=== PATIENT | female | born 1945 | race Caucasian/White ===

== ENCOUNTER → 2016-07-08 | Outpatient (CLI) | payer OTHER ==
[2016-07-08 13:28] LABS: BASO % 0.3 %; BASO ABS # 0.02 K/uL (0-0.2); COMPLETE YES; EOS % 1.8 %; HEMATOCRIT 36.9 % (37-47); IG% 0.3 %; LYMPH ABS # 1.86 K/uL (1.2-3.4); MEAN CELL VOLUME 93.9 fL (80-100); MEAN CORPUSCULAR HEMOGLOBIN 31.3 pg (25-34); MEAN CORPUSCULAR HGB CONC 33.3 g/dl (32-36); MEAN PLATELET VOLUME 10.2 fL (7.4-10.4); MONO % 9.5 %; NEUT % 57.1 %; PLATELET COUNT 175 K/uL (130-400); RED BLOOD COUNT 3.93 M/uL (4.2-5.4)
[2016-07-08 14:08] LABS: BLOOD UREA NITROGEN 24 mg/dl (7-18); BUN/CREATININE RATIO 24.9 (10-20); CALCIUM 9.6 mg/dl (8.5-10.1); CARBON DIOXIDE 26 mmol/L (21-32); CHLORIDE 106 mmol/L (98-107); CREATININE 0.96 mg/dl (0.60-1.20); GLUCOSE 93 mg/dl (70-99); MAGNESIUM 1.9 mg/dl (1.8-2.4); SODIUM 140 mmol/L (136-145)
== END | disposition home or self-care (01) ==
LOC: C.LABMFLN 08:57
PROVIDERS: ATTEND Internal Medicine Gastroenterology
DX: R13.10 Dysphagia, unspecified (principal); R11.2 Nausea with vomiting, unspecified; Z51.81 Encounter for therapeutic drug level monitoring; Z79.899 Other long term (current) drug therapy

== ENCOUNTER → 2016-08-08 | Outpatient (CLI) | payer OTHER ==
[2016-08-08 18:04] LABS: BASO % 0.5 %; BASO ABS # 0.03 K/uL (0-0.2); COMPLETE YES; EOS % 2.9 %; HEMATOCRIT 38.8 % (37-47); IG% 0.2 %; LYMPH % 33.9 %; LYMPH ABS # 2.22 K/uL (1.2-3.4); MEAN CELL VOLUME 96.3 fL (80-100); MEAN CORPUSCULAR HEMOGLOBIN 30.8 pg (25-34); MEAN PLATELET VOLUME 9.9 fL (7.4-10.4); MONO % 9.6 %; NEUT % 52.9 %; PLATELET COUNT 197 K/uL (130-400); RED BLOOD COUNT 4.03 M/uL (4.2-5.4); WHITE BLOOD COUNT 6.54 K/uL (4.8-10.8)
[2016-08-08 18:17] LABS: ALT/SGPT 43 U/L (12-78); AST/SGOT 16 U/L (15-37); BLOOD UREA NITROGEN 21 mg/dl (7-18); BUN/CREATININE RATIO 22.2 (10-20); CALCIUM 9.8 mg/dl (8.5-10.1); CARBON DIOXIDE 35 mmol/L (21-32); CHLORIDE 104 mmol/L (98-107); CREATININE 0.95 mg/dl (0.60-1.20); GLUCOSE 97 mg/dl (70-99); POTASSIUM 3.6 mmol/L (3.5-5.1); SODIUM 142 mmol/L (136-145)
[2016-08-08 18:26] LABS: ALB/GLOB RATIO 1.2 (0.9-2); ALKALINE PHOSPHATASE 74 U/L (45-117); CHOLESTEROL 188 mg/dl (0-200); CHOLESTEROL/HDL RATIO 3.8; HDL CHOLESTEROL 49 mg/dl; LDL CHOLESTEROL CALCULATED 112 mg/dl; TRIGLYCERIDES 136 mg/dl (0-150); VERY LOW DENSITY LIPOPROT CALC 27 mg/dl
--- NOTE | 2016-08-16 09:54 | CODING QUERY MEDICAL NECESSITY ---
CQSUPPORTING DIAGNOSIS NEEDED A supporting diagnosis is required for the test/procedure performed on this patient in order for us to be reimbursed by the patient's insurance. Please provide a supporting diagnosis for the following test/procedure listed below next to the test name along with your signature. *If there is no additional diagnosis for this patient that would support the following test/procedure please document that below next to the test/procedure. Test(s)/Procedure(s) that require a supporting diagnosis: DOS 08/08/16 VITAMIN B12 Provider Signature: Date: Thank you Erica Neely [employer] Once completed, please kindly fax back to [phone] For questions please call [phone]
== END | disposition home or self-care (01) ==
LOC: C.LABMFLN 13:53
PROVIDERS: ATTEND Family Medicine
DX: I10 Essential (primary) hypertension (principal); F32.9 Major depressive disorder, single episode, unspecified

== ENCOUNTER → 2016-10-30 | Outpatient (CLI) | payer OTHER | END | disposition home or self-care (01) | LOC: C.PAPS 09:38 | PROVIDERS: ATTEND Obstetrics & Gynecology | DX: Z91.89 Other specified personal risk factors, not elsewhere classified (principal); R87.612 Low grade squamous intraepithelial lesion on cytologic smear of cervix (LGSIL) ==

== ENCOUNTER → 2017-01-03 | Outpatient (CLI) | payer OTHER | END | disposition home or self-care (01) | LOC: C.PATHSPEC 14:03 | PROVIDERS: ATTEND Obstetrics & Gynecology | DX: R87.612 Low grade squamous intraepithelial lesion on cytologic smear of cervix (LGSIL) (principal); N72 Inflammatory disease of cervix uteri ==

== ENCOUNTER → 2017-01-14 | Outpatient (CLI) | payer OTHER | END | disposition home or self-care (01) | LOC: C.LABMFLN 15:01 | PROVIDERS: ATTEND Family Medicine | DX: Z11.59 Encounter for screening for other viral diseases (principal) ==

== ENCOUNTER → 2017-05-05 | Outpatient (CLI) | payer OTHER ==
--- NOTE | 2017-05-05 16:00 | DIAGNOSTIC IMAGING REPORT ---
CAROTID DOPPLER NECK ART CLINICAL HISTORY: 71 years-old Female with patient presents with carotid bruit. COMPARISON: None available TECHNIQUE: Multiple real time sonographic images of the carotid bifurcations were obtained assessing mcmullen scale, color Doppler and spectral wave form appearance FINDINGS: RIGHT INTERNAL CAROTID: The peak systolic velocity measured 80 cm/sec. The end diastolic velocity measured 31 cm/sec. The ICA to CCA ratio measured 1.3 which correlates with a stenosis of 0-50%. LEFT INTERNAL CAROTID: The peak systolic velocity measured 123 cm/sec. The end diastolic velocity measured 33 cm/sec. The ICA to CCA ratio measured 1.3 which correlates with a stenosis of 0-50%. Mild degree of mixed plaquing is seen within the proximal portion of the left internal carotid artery. There is normal antegrade vertebral flow bilaterally. IMPRESSION: 1. Mild mixed plaquing involves the proximal portion of the left internal carotid artery without hemodynamically significant stenosis. 2. Normal antegrade vertebral flow bilaterally. The above report was generated using voice recognition software. It may contain grammatical, syntax or spelling errors. Electronically signed by: Kendall Watkins M.D. 05/05/2017 3:59 PM Dictated Date/Time: 05/05/2017 3:55 PM
== END | disposition home or self-care (01) ==
LOC: C.ULTR 11:29
PROVIDERS: ATTEND Family Medicine
DX: R09.89 Other specified symptoms and signs involving the circulatory and respiratory systems (principal)

== ENCOUNTER 2018-05-04 05:26 | Observation (INO) ==
--- NOTE | 2018-04-13 14:06 | PAT Medication Instructions ---
Medication Instructions Date of Service April 13, 2018 Home Medications Calcium 1 dose PO QAM Folic Acid 1 dose PO QAM Lisinopril 1 dose PO QAM Vitamin B Complex 1 dose PO QAM Vitamin C 1 dose PO QAM Wellbutrin 300 mg PO QAM aspirin [Aspir-81] 81 mg PO DAILY escitalopram oxalate 10 mg PO QAM multivitamin [Multiple Vitamins] 1 tab PO DAILY ASK your surgeon for instructions aspirin [Aspir-81] 81 mg PO DAILY DO NOT take the morning of surgery Calcium 1 dose PO QAM Folic Acid 1 dose PO QAM Lisinopril 1 dose PO QAM Vitamin B Complex 1 dose PO QAM Vitamin C 1 dose PO QAM multivitamin [Multiple Vitamins] 1 tab PO DAILY Take morning of surgery With a small sip of water, OTHERWISE NOTHING TO EAT OR DRINK AFTER MIDNIGHT: Wellbutrin 300 mg PO QAM escitalopram oxalate 10 mg PO QAM Other Notes If you have any questions please call us at [phone] or [phone] or [phone] or [phone]
--- NOTE | 2018-04-13 16:06 | Anesthesiology Consultation ---
Date of Service April 13, 2018 Assessment & Plan (1) Encounter for pre-operative examination: Chart Review Chart Review: Acceptable Risk for Surgery and Patient seen in Pre Admission Testing Teaching & Discussion Instructed NPO after midnight before surgery, except medications with 15 cc of water. Medication instructions provided according to the PAT guidelines. History Surgery Operation Date: 05/04/18 09:20 Proposed Procedures p Robotic Total Laparoscopy Hysterectomy - Flory Jeffries MD, FACOG Height/Weight Height: 5 ft 2.5 in Weight: 66.2 kg Allergies Allergy/AdvReac Type Severity Reaction Status Date / Time morphine Allergy Unknown Hallucinati Verified 04/08/18 14:13 ng BANDAIDS Allergy Unknown BUMPS/BLISTERS Uncoded 04/08/18 14:34 ON SKIN Medications Home Medications Medication Instructions Recorded Confirmed Last Taken Calcium 1 dose PO QAM 04/08/18 04/08/18 Unknown Folic Acid 1 dose PO QAM 04/08/18 04/08/18 Unknown Lisinopril 1 dose PO QAM 04/08/18 04/08/18 Unknown Vitamin B Complex 1 dose PO QAM 04/08/18 04/08/18 Unknown Vitamin C 1 dose PO QAM 04/08/18 04/08/18 Unknown Wellbutrin 300 mg PO QAM 04/08/18 04/08/18 Unknown aspirin [Aspir-81] 81 mg PO DAILY 04/08/18 04/08/18 Unknown escitalopram oxalate 10 mg PO QAM 04/08/18 04/08/18 Unknown multivitamin [Multiple Vitamins] 1 tab PO DAILY 04/08/18 04/08/18 Unknown Past Medical History Medical History Anxiety and depression Family history of reaction to anesthesia SISTER GETS SEVERE N/V History of breast cancer 2002 Hypertension Nausea and vomiting after administration of anesthetic agent Past Family History Family History Other Family history of cancer in mother Past Surgical History Surgical History H/O breast reconstruction History of appendectomy History of bilateral mastectomy History of colonoscopy History of laparoscopic cholecystectomy History of vascular access device A port for breast cancer, still in place Past Anesthesia History MULTIPLE OCCASIONS OF PONV. SISTER WITH SEVERE PONV. NO OTHER PERSONAL OR FHX OF COMPLICATIONS. History of PONV Yes Motion Sickness Screening History of Motion Sickness: No Social History Smoking Status: Former smoker tobacco type: cigarettes Smoking cigarettes per day: QUIT 35 YRS AGO Do You Dip or Chew Tobacco: No Hx Alcohol Use: Yes Alcohol type: beer and wine alcohol intake frequency: a few times a month Hx Substance Use: No substance use type: does not use Exercise / Class Metabolic Activity II 4-5 Yardwork/Stairs/Walk up hill (no CP or SOB with stairs) Review of Systems Pt denies any recent chest pain, shortness of breath, palpitations, cough, fever or URI. Physical Exam Vital Signs BP: 164/78 (pt states was 120's at surgeon's office; she is anxious) P: 72 SPO2: 98% RA T: 98.2 R: 16 ENMT Mouth: no dental restorations, no chipped teeth and no loose teeth Thyromental Distance: < 3.5 Finger Breadths (3) Mallampati Class: III Neck normal visual inspection and + limited neck extension (mildly limited extension) Respiratory normal respiratory effort Auscultation: lungs clear to auscultation bilaterally Cardiovascular Rate/Rhythm: regular rate and regular rhythm Heart Sounds: no murmur Vessels: no carotid bruit Extremities: no edema Testing Electrocardiogram Date: 04/13/18 Findings: + NSR @ (70) Chest X-Ray Date: 04/13/18 Findings: + NAD Laboratory Results 04/13/18 16:15 04/13/18 16:15 Blood Type B Negative 04/13/18 16:15 Antibody Screen NEGATIVE 04/13/18 16:15
[2018-04-13 16:42] LABS: Basophils # (auto) 0.05 K/uL (0-0.2); Basophils % (auto) 0.8 %; Eosinophils # (auto) 0.14 K/uL (0-0.5); Eosinophils % (auto) 2.2 %; Hematocrit (blood only) 38.3 % (37-47); Hemoglobin 12.4 g/dL (12.0-16.0); Immature Granulocytes # (auto) 0.01 K/uL (0.00-0.02); Immature Granulocytes % (auto) 0.2 %; Lymphocytes # (auto) 2.21 K/uL (1.2-3.4); Lymphocytes % (auto) 34.2 %; Mean Corpuscular Hgb Conc 32.4 g/dL (32-36); Mean Corpuscular Volume 93.9 fL (80-100); Monocytes # (auto) 0.68 K/uL (0.11-0.59); Monocytes % (auto) 10.5 %; Neutrophils # (auto) 3.37 K/uL (1.4-6.5); Neutrophils % (auto) 52.1 %; Platelet Count 205 K/uL (130-400); RDW Coefficient of Variation 12.7 % (11.5-14.5); RDW Standard Deviation 43.3 fL (36.4-46.3); Red Blood Count 4.08 M/uL (4.2-5.4); White Blood Count 6.46 K/uL (4.8-10.8)
--- NOTE | 2018-04-13 16:45 | XRay Report ---
XR chest Pre-admission PA/Lat CLINICAL HISTORY: pat preoperative COMPARISON STUDY: No previous studies for comparison. FINDINGS: Postoperative changes right axilla area Central catheters. Vena cava. Lungs are considered clear. IMPRESSION: Postoperative changes as noted. No acute process. The above report was generated using voice recognition software. It may contain grammatical, syntax or spelling errors. Electronically signed by: Moise Gibson M.D. 04/13/2018 4:44 PM
[2018-04-13 16:51] LABS: BUN Creatinine Ratio 18.6 (10-20); Calcium 10.4 mg/dl (8.5-10.1); Creatinine Clr Calc Pharmacy 48.6 ml/min; Est GFR (Non-African American) 59.5
[2018-05-04] MEDS ORDERED: LR 15ML/HR IV SCH (06:00)
[2018-05-04] MEDS ORDERED: CEFAZOLIN 2000MG 2,000 MG/15 ML SYR IV SCH (06:00)
[2018-05-04] MEDS ORDERED: [UNRECOGNIZED DRUG - OTHER] IV SCH (06:00)
--- NOTE | 2018-05-04 07:05 | History & Physical Bridge Note ---
Date of Service May 04, 2018 History & Physical Bridge Note I have examined the patient, reviewed the History & Physical and in the interval since the performance of the History & Physical I have noted the following changes of clinical significance: no changes noted
[2018-05-04] MEDS ORDERED: fentaNYL citrate 100 MCG/2 ML VIAL ONE (07:07)
[2018-05-04] MEDS ORDERED: MIDAZOLAM HCL 1 MG/ML 2ML VIAL ONE (07:07)
[2018-05-04] MEDS ORDERED: LABETALOL HCL IV 5 MG/ML 20ML IV PRN (07:14)
[2018-05-04] MEDS ORDERED: KETOROLAC TROMETHAMINE 15 MG/ML VIAL IV PRN ×2 (07:14→09:53)
[2018-05-04] MEDS ORDERED: SCOPOLAMINE 1.5 MG TDSY ONE (07:14)
[2018-05-04] MEDS ORDERED: HYDROmorphone INJ 1 MG/ML SYRINGE IV PRN (07:14)
[2018-05-04] MEDS ORDERED: ATROPINE SULFATE 0.1 MG/ML 10ML SYR IV PRN (07:14)
[2018-05-04] MEDS ORDERED: ONDANSETRON INJ 2 MG/ML 2 ML VIAL IV PRN ×2 (07:14→09:53)
[2018-05-04] MEDS ORDERED: SCOPOLAMINE 1.5 MG TDSY TD ONE (07:15)
[2018-05-04] MEDS ORDERED: METHYLENE BLUE 0.5% 10 ML VIAL ONE (07:20)
[2018-05-04] MEDS ORDERED: BUPIVACAINE 0.5 % 5 MG/1 ML MPF 30ML VIAL ONE (07:20)
[2018-05-04] MEDS ORDERED: GLYCOPYRROLATE 0.2 MG/ML VIAL ONE (08:22)
[2018-05-04] MEDS ORDERED: ROCURONIUM BROMIDE 10 MG/ML 5 ML VIAL ONE (08:22)
[2018-05-04] MEDS ORDERED: PROPOFOL IV EMULSION 10 MG/ML 20 ML VIAL IV ONE (08:22)
[2018-05-04] MEDS ORDERED: LARYING-O-JET KIT (LTA) ONE (08:22)
[2018-05-04] MEDS ORDERED: ePHEDrine sulfate 50 MG/ML SYR ONE (08:22)
[2018-05-04] MEDS ORDERED: LIDOCAINE HCL 2% 2 ML VIAL/AMP(20MG/ML) INFIL ONE (08:22)
[2018-05-04] MEDS ORDERED: PHENYLEPHRINE 100MCG/ML 5ML SYR ONE (08:22)
[2018-05-04] MEDS ORDERED: NEOSTIGMINE METHYLSULFATE 5 MG/5 ML SYR ONE (08:22)
[2018-05-04] MEDS ORDERED: ONDANSETRON INJ 2 MG/ML 2 ML VIAL ONE (08:22)
[2018-05-04] MEDS ORDERED: DEXAMETHASONE SOD INJ 4 MG/ML VIAL ONE (08:22)
[2018-05-04] MEDS ORDERED: KETOROLAC 30 MG/ML VIAL ONE (08:23)
[2018-05-04] MEDS ORDERED: TISSEEL FIBRIN SEALANT 4ML TOP ONE (09:20)
[2018-05-04] MEDS ORDERED: MAGNESIUM HYDROXIDE SUSP 30 ML UDC PO PRN (09:53)
[2018-05-04] MEDS ORDERED: MEPERIDINE HCL 50 MG/ML CARP IV PRN (09:53)
[2018-05-04] MEDS ORDERED: BISACODYL 10 MG SUPP PR PRN (09:53)
[2018-05-04] MEDS ORDERED: ZOLPIDEM TARTRATE 5 MG TAB PO PRN (09:53)
[2018-05-04] MEDS ORDERED: IBUPROFEN 600 MG TAB PO PRN (09:53)
[2018-05-04] MEDS ORDERED: SIMETHICONE 80 MG CHEW PO PRN (09:53)
[2018-05-04] MEDS ORDERED: PROMETHAZINE HCL 12.5 MG in SODIUM CHLORIDE 0.9% 50 ML IV PRN (09:53)
[2018-05-04] MEDS ORDERED: ACETAMINOPHEN 325 MG TAB PO PRN (09:53)
--- NOTE | 2018-05-04 09:53 | Post Operative Brief Note ---
Immediate Post Op Note v1 Date of Surgery May 04, 2018 Pre & Post Diagnosis Operation Date: 05/04/18 07:30 Pre-Op Diagnosis: Pap Smear of Cervix with High Grade Squamous Post-Op Diagnosis: Pap Smear of Cervix with High Grade Squamous Procedure Operation Date: 05/04/18 07:30 Actual Procedures p Robotic Total Laparoscopy Hysterectomy, Bilateral Salpingooopherectomy, Cystoscopy(Bilateral) - Flory Jeffries MD, FACOG Surgeon Flory Jeffries MD, FACOG Computer Field Technician none Estimated Blood Loss 10 Findings Consistent with Post-Op Diagnosis Drains Covarrubias Catheter
--- NOTE | 2018-05-04 10:33 | Anesthesiology Progress Note ---
Date of Service May 04, 2018 Anesthesia Post Procedure Vital Signs Vital Signs: Temp Pulse Pulse Resp BP Pulse Ox 05/04/18 10:25 69 19 135/55 L 94 05/04/18 10:15 65 26 H 130/51 L 99 05/04/18 10:05 65 12 130/58 L 99 05/04/18 09:57 36.9 C 68 13 170/78 H 99 05/04/18 05:52 36.8 C 87 20 171/83 H 98 Pain Intensity Abdomen: Pain Intensity: 5 Notes Mental Status: alert / awake / arousable Patient Amnestic to Procedure: Yes Nausea / Vomiting: adequately controlled Pain: adequately controlled Airway Patency, RR, SpO2: stable & adequate BP & HR: stable & adequate Hydration State: stable & adequate Anesthetic Complications: no major complications apparent
[2018-05-04] MEDS: CHECK SCOPOLAMINE PATCH PLACEMENT SCH (17:48)
--- NOTE | 2018-05-04 18:03 | Operative Report ---
Post Operative Report Pre & Post Diagnosis Operation Date: 05/04/18 07:30 Pre-Op Diagnosis: Pap Smear of Cervix with High Grade Squamous Post-Op Diagnosis: Pap Smear of Cervix with High Grade Squamous Procedure Operation Date: 05/04/18 07:30 Actual Procedures p Robotic Total Laparoscopy Hysterectomy, Bilateral Salpingooopherectomy( Bilateral) - Flory Jeffries MD, FACOG s Cystoscopy - Flory Jeffries MD, FACOG Surgeon Flory Jeffries MD, FACOG Hand Fretted Instrument Maker none Estimated Blood Loss 10 Findings Consistent with Post-Op Diagnosis Specimens Uterus, tubes, ovaries, cervix Description of Procedure Patient given a general anesthetic prepped and draped in dorsal lithotomy position. IV antibiotics given her cervix was severely distorted due to prior conization and LEEP procedures. We did attempt multiple times to place AV care but we could not place this successfully due to cervical anatomy being abnormal we used a sponge stick and a sponge to manipulate. Covarrubias catheter placed in her bladder. Subumbilical incision made with scalpel using open Webster technique we did a cutdown into the peritoneal cavity blunt-tipped Webster trocar placed balloon inflated to stabilize the port CO2 gas insufflated the peritoneal cavity and para findings upper abdomen normal no sign of visceral organ injury. Deep Trendelenburg position then obtained to visualize the pelvis this appeared normal as the uterus and adnexa all appeared normal. 2 robotic ports one in the left one on the right placed in a left upper quadrant 11 mm bladeless port placed. Robot docked and arm #1 was monopolar leena arm #2 was bipolar [place] procedure was begun by using through the accessory port a tenaculum to manipulate the uterus identified the ureter on both the left and right sides and then we coagulated the blood supply to the left ovary proximal to the ovary staying well away from the left ureter. This these vessels were then transected ovary was released from its lateral attachments to the sidewall round ligament was coagulated and cut bladder flap was developed sharply uterine vessels were skeletonized and then coagulated with the bipolar Maryland and cut with monopolar leena Same process was repeated on the right Once at the bladder flap we used the sponge on a stick with pressure to identify the bladder flap the vaginal junction and the cervix monopolar leena were used to make the anterior colpotomy and then continue it to remove the entire cervix. Uterus was then pulled into the vagina and removed along with adnexa. Sponge and a glove was placed in the vagina for pneumoperitoneum We then perform instrument exchanges are #1 became the [employer] needle dedicated intermodal truck driver arm #2 became the [employer] grasper 12 inch 2 oh 90-day V lock suture then passed cuff was then closed from left to right back right to left suture was cut so there is no tail needle removed the excess report after generous irrigation and suction reapplied 4 mL of Tisseel to the vascular beds Cystoscopy was performed revealing good strong jets of urine from the ureter openings and no damage to the bladder no sutures seen in the bladder a new Covarrubias catheter was placed It should be noted I did a second area of reinforcement of the vaginal cuff vaginally with an 0 Vicryl this was 2 [id number] sutures to ensure full closure as patient's tissues were somewhat weak. Instruments removed from the abdomen robot undocked ports removed and gas allowed to escape and incisions injected with 0.5% Marcaine fascia closed with 0 Vicryl simultaneous fat irrigated and closed with 0 Vicryl and skin closed with 4-0 subcuticular Monocryl sponge and inspect counts correct I attest to the content of the Intraoperative Record and any orders documented therein. Any exceptions are noted below.
[2018-05-04] MEDS: LACTATED RINGER'S 1,000 ML IV SCH (18:55)
[2018-05-04] MEDS: DOCUSATE SODIUM 100 MG CAP PO SCH (21:13)
[2018-05-04] MEDS: OXYCODONE/ACETAMINOPHEN 5mg/325mg TAB PO PRN (22:12)
[2018-05-05] MEDS: CHECK SCOPOLAMINE PATCH PLACEMENT SCH (00:06)
[2018-05-05] MEDS: LACTATED RINGER'S 1,000 ML IV SCH (03:12)
[2018-05-05] MEDS: OXYCODONE/ACETAMINOPHEN 5mg/325mg TAB PO PRN ×2 (03:26→08:20)
[2018-05-05 06:42] LABS: Basophils # (auto) 0.01 K/uL (0-0.2); Basophils % (auto) 0.1 %; Eosinophils # (auto) 0.02 K/uL (0-0.5); Eosinophils % (auto) 0.2 %; Hematocrit (blood only) 33.9 % (37-47); Hemoglobin 11.1 g/dL (12.0-16.0); Immature Granulocytes # (auto) 0.03 K/uL (0.00-0.02); Immature Granulocytes % (auto) 0.3 %; Lymphocytes # (auto) 2.04 K/uL (1.2-3.4); Lymphocytes % (auto) 19.8 %; Mean Corpuscular Hgb Conc 32.7 g/dL (32-36); Mean Corpuscular Volume 93.6 fL (80-100); Mean Platelet Volume 10.1 fL (7.4-10.4); Monocytes # (auto) 1.16 K/uL (0.11-0.59); Monocytes % (auto) 11.3 %; Neutrophils # (auto) 7.02 K/uL (1.4-6.5); Neutrophils % (auto) 68.3 %; Platelet Count 142 K/uL (130-400); RDW Coefficient of Variation 12.7 % (11.5-14.5); RDW Standard Deviation 43.6 fL (36.4-46.3); Red Blood Count 3.62 M/uL (4.2-5.4); White Blood Count 10.28 K/uL (4.8-10.8)
--- NOTE | 2018-05-05 07:56 | Progress Note ---
Date of Service May 05, 2018 POD#1 Ambulating well. Tolerating ZACH pain well controlled. No ext pain Assessment & Plan (1) Dysplasia of cervix: home Physical Exam 2 Vital Signs (Past 24 Hours): Last Vital Signs Temp 36.7 C 05/05/18 03:15 Pulse 70 05/05/18 03:15 Resp 20 05/05/18 03:15 BP 145/63 H 05/05/18 03:15 Pulse Ox 97 05/05/18 03:15 Constitutional: WD/WN, vitals as above Respiratory: normal respiratory effort, lungs clear to auscultation Gastrointestinal (Abdomen): normal bowel sounds, soft, nontender, no hepatosplenomegaly
[2018-05-05] MEDS: DOCUSATE SODIUM 100 MG CAP PO SCH (08:20)
--- NOTE | 2018-05-09 01:16 | Discharge Summary ---
HISTORY OF PRESENT ILLNESS: Barry had a total laparoscopic hysterectomy on 05/04/2018. Operative note dictated. The procedure was uncomplicated. By 05/05/2018, she met discharge criteria. At that time she was ambulating, tolerating an oral diet, voiding well, had minimal bleeding, no extremity pain. PHYSICAL EXAMINATION: VITAL SIGNS: Stable. She was afebrile. ABDOMEN: Soft, nontender. Incision was clean, dry, and intact. EXTREMITIES: Negative. IMPRESSION AND PLAN: Postop day #1 from total laparoscopic hysterectomy, bilateral salpingo-oophorectomy. Meets criteria. Given discharge instructions and reviewed. Pain medication given and told to follow up in the office.
== END 2018-05-05 10:30 | disposition home or self-care (01) ==
LOC: ASU 05:26 → 4S2 05:26

== ENCOUNTER 2024-10-18 05:15 | Inpatient (IN) ==
--- NOTE | 2024-10-18 09:08 | Critical Care Consultation ---
Date of Consultation October 18, 2024 Assessment & Plan (1) Hypertensive emergency: (2) NSTEMI (non-ST elevated myocardial infarction): (3) Adult ADHD: (4) Nonischemic cardiomyopathy: (5) Depression: (6) History of breast cancer: (7) Hypertension: (8) Shortness of breath: (9) Acute respiratory failure with hypoxia: Plan Reason Critically Ill: 79-year-old female admitted to the hospital/ICU for NSTEMI and hypertensive emergency She is being transferred from [facility] Past medical history: Hypertension, systolic CHF, anxiety/depression, dyslipidemia Neuro - [facility] ICU: Negative --Anxiety/depression Continue with escitalopram as well as bupropion Cardiac - -- Hypertensive emergency On nitro drip while being transferred from [facility] Will try to titrated off --NSTEMI Does seem to have ST depression on the lateral leads with history of nonischemic cardiomyopathy Follow-up 2D echo --Nonischemic cardiomyopathy On Entresto, metoprolol 50 mg, rosuvastatin 20 mg and aspirin at home 2D echo 05/07/2024: EF 55%, moderate concentric LVH, sclerotic aortic valve without stenosis, mild MR, grade 1 diastolic dysfunction Respiratory - -- Requiring low-dose oxygen Follow-up chest x-ray Try to wean off oxygen GI - -- Chronic diarrhea Secondary to lactose intolerance Continue to monitor RENAL/LYTES - -- Monitor BUNs/creatinine Avoid nephrotoxic medication ENDO - -- ICU hyperglycemia protocol HEME - -- Monitor H&H --History of breast cancer Initially 1987 with multiple relapse Got chemotherapy and radiation x 2 Last relapse was in 2002 s/p bilateral mastectomy ID - -- Multifocal pulmonary opacities could be from pulmonary edema but given PCT elevated and low grade fever will give antibiotics PCT 0.69 Musculoskeletal - --Right shoulder pain Has been going on since May 2023 --Prophylaxis VTE: Heparin drip GI: Pantoprazole Lines: Peripheral Diet: N.p.o. Plan: Strict ins and outs Put nitroglycerin on hold, goal SBP will be around 140-150. Will resume her home blood pressure medication. Follow-up 2D echo Continue with heparin drip. Procalcitonin elevated at 0.69 with multifocal opacities. Given the patient is spiking low-grade fever I am going to start her on Rocephin for 5 days I have personally spent 60 minutes of critical care time in the direct management of this patient. This is a life/limb threatening event. This includes time spent evaluating patient, direct bedside care, chart review, placing orders , interpretation of diagnostic studies, discussion with consultants, patient, and family members, as well as other required patient management activities. This time is exclusive of all separately billable procedures, and teaching time and separate from and in addition to any other critical care service time. History of Present Illness Attending Physician: Skip Madrid MD History of Present Illness 79-year-old female admitted to the hospital/ICU for NSTEMI and hypertensive emergency She is being transferred from [facility] Past medical history: Hypertension, systolic CHF, anxiety/depression, dyslipidemia At the time of examination patient was saturating 96-97% on 4 L nasal cannula She was not in any respiratory distress. Respiratory was in the mid teens. Heart rate was in the high 70s with systolic blood pressure in the 130s Patient did present on nitro drip. On presentation his blood pressure was in the 110s. As per the signout from [facility] patient's blood pressure on presentation was in the 190s I think the drop is more than expected. Will try to titrate off the nitro drip. Patient says she is feeling better compared to how she was in the ER The reason she went to the ER was feeling uneasy, shortness of breath. Denied any chest pain, no blurry vision No nausea or vomiting Patient has on and off diarrhea which she refers to her being lactose tolerance No fever or chills No night sweats, no unintentional weight loss No unusual headache or blurry vision. 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 chemicals or fumes Pets: 4 dogs, 2 cats No history of lung cancer in the family Allergies Allergy/AdvReac Type Severity Reaction Status Date / Time morphine Allergy Unknown Hallucinati Verified 06/10/24 15:19 ng codeine Allergy Nausea Verified 06/10/24 15:19 cyclobenzaprine Allergy Nausea Verified 06/10/24 15:19 [From Flexeril] BANDAIDS Allergy Unknown BUMPS/BLISTERS Uncoded 06/10/24 15:19 ON SKIN Home Medications Medication Instructions Recorded Confirmed Type cholecalciferol (vitamin D3) 125 125 mcg PO QAM 09/03/22 10/18/24 History mcg (5,000 unit) capsule Port Flush #1 ea 06/10/23 06/10/24 Rx folic acid 800 mcg tablet 850 mcg PO QAM 11/04/23 10/18/24 History multivitamin 1 tab PO HS 11/04/23 10/18/24 History aspirin 81 mg tablet,delayed 81 mg PO QAM 12/05/23 10/18/24 History release metoprolol succinate 50 mg 50 mg PO QAM 12/05/23 10/18/24 History tablet,extended release 24 hr doxepin 3 mg tablet 3 mg PO HS PRN sleep #30 tabs 03/03/24 10/18/24 Rx sacubitril 49 mg-valsartan 51 mg 1 tab PO BID #180 tabs 04/13/24 10/18/24 Rx tablet (Entresto) ciprofloxacin HCl 250 mg tablet 250 mg PO BID #14 tabs 06/10/24 06/10/24 Rx colestipol 1 gram tablet (Colestid) 1 g PO BID #60 tabs 06/10/24 06/10/24 Rx omeprazole 40 mg capsule,delayed 40 mg PO QAM #90 caps 06/10/24 10/18/24 Rx release rosuvastatin 20 mg tablet 20 mg PO QAM #90 tabs 06/10/24 10/18/24 Rx escitalopram oxalate 20 mg tablet See Rx Instructions .Route 10/11/24 10/18/24 Rx .COMPLEX #90 tabs bupropion HCl 200 mg tablet,12 hr 200 mg PO QAM 10/18/24 10/18/24 History sustained-release Patient History Medical History Slow to wake up after anesthesia Nausea and vomiting after administration of anesthetic agent UTI (urinary tract infection) started on 12/02/23, tx w/abx. Osteopenia Mitral regurgitation f/u dr. guevara, [place] [facility] Left inguinal hernia Hypertension Hyperlipidemia Dysphagia "sometimes food gets stuck" Depression Coronary artery disease History of anemia no current issues Adult ADHD (attention deficit hyperactivity disorder) Hx of breast cancer dx 2002, sx/chemo/xrt History of chemotherapy 2002 w/right breast Surgical History Hx of cardiac cath 07/2022, abn. stress test, [facility], no stents; f/u dr. guevara, [place] History of Mohs micrographic surgery for skin cancer 2 areas on face removed H/O colposcopy with cervical biopsy H/O total hysterectomy with bilateral salpingo-oophorectomy (BSO) 05/04/18 H/O breast reconstruction History of vascular access device A port for breast cancer, still in place History of colonoscopy 04/27/19 repeat 5yrs History of laparoscopic cholecystectomy 2012 History of appendectomy History of bilateral mastectomy 2002 Family History Father , 92 years old Hearing loss Family/Other Hearing loss Cancer Mother , 69 years old Colorectal cancer Lung cancer Brother Prostate cancer Hx of CABG Denies family history of Malignant hyperthermia Ovarian cancer Myocardial infarction Breast cancer Bleeding disorder Social History Smoking Status: Former smoker Tobacco Type: Cigarettes Age Started Using Tobacco: 20; Age Quit Using Tobacco: 38; packs per day: 0.5; Cigarettes Per Day: QUIT 35 YRS AGO; Second Hand Exposure: No; Do You Dip or Chew Tobacco: No; Hx Alcohol Use: Yes Alcohol type: beer Alcohol Intake Frequency: 2-4 x/Month Hx Substance Use: No Preferred Language: Cymro Communication Ability: Effective Visual Impairment: Partially Limited Hearing Ability: Hard of Hearing Milk Collector Required: No Beliefs That Will Affect Care: None marital status: Current Living Situation: Family Current Living Situation Comment: daughter, son-in-law, and grandchildren current occupational status: retired How many Children do You have: 2 Feels Safe at Home: Yes Childhood Exposure to Second-Hand Smoke: Yes Diet: regular caffeine: Yes (tea, regular soda) during the past year weight has: remained stable Dental Care, Regularly: Yes Physical Activity Frequency: Daily Seatbelt Use: always Sunscreen Use: Yes Do you think of yourself as: straight/heterosexual Gender Identity: Female Assistive Devices: Glasses Review of Systems Review of Systems: All systems reviewed & are unremarkable except as noted in HPI & below Physical Exam Physical Exam: Constitutional: No acute distress HEENT: EOMI, PERRLA Respiratory system: Good air entry bilaterally, no wheeze, no rhonchi, positive crackles bilaterally more on the right lower side CVS: S1-S2 positive, no murmurs or gallops Abdomen: Soft, nontender, nondistended, positive bowel sounds x4 Extremities: +2 pulses bilaterally radialis/ dorsalis pedis, no cyanosis, no edema Neuro: Awake alert oriented x3 Psych: Normal mood and affect G/U: No Covarrubias Skin: no rashes, warm and dry Lymphatic: no cervical or axillary lymphadenopathy Coding Level of Care Code 87111 CRITICAL CARE 1ST 30-74M Diagnoses Hypertensive emergency I16.1 NSTEMI (non-ST elevated myocardial infarction) I21.4 Adult ADHD F90.9 Nonischemic cardiomyopathy I42.8 Depression F32.9 History of breast cancer Z85.3 Primary hypertension I10 Hypertension type: primary hypertension Shortness of breath R06.02 Acute respiratory failure with hypoxia J96.01 (7) Hypertension Hypertension type: primary hypertension Qualified Code(s): I10 - Essential (primary) hypertension
[2024-10-18] MEDS: HEPARIN 25000 UNIT/500 ML D5W 25,000 UNITS/500 ML BAG IV SCH (09:29)
[2024-10-18 09:40] LABS: Hematocrit (blood only) 35.6 % (37.0-47.0); Hemoglobin 11.6 g/dl (12.0-16.0); Immature Granulocytes # (auto) 0.06 K/uL (0.01-0.20); Immature Granulocytes % (auto) 0.5 %; Mean Corpuscular Hemoglobin 30.6 pg (25.0-34.0); Mean Corpuscular Volume 93.9 fL (80.0-100.0); Platelet Count 134 K/uL (130-400); RDW Standard Deviation 45.8 fL (36.4-46.3); Red Blood Count 3.79 M/uL (4.20-5.40); White Blood Count 12.42 K/ul (4.8-10.8)
--- NOTE | 2024-10-18 09:41 | XRay Report ---
XR chest 1V portable CLINICAL HISTORY: flash pulm edema, resp failure COMPARISON STUDY: 04/13/2018 FINDINGS: Stable left chest port. Stable mild cardiomegaly with mild pulmonary vascular congestion. T here is interval hazy opacity in the lung bases with partial obscuration of the diaphragm. There is a n interval roughly oval area of opacity at the right upper lung measuring approximately 4 cm. No pneu mothorax. IMPRESSION: 1. CHF. 2. Lung base opacity could represent consolidation or small pleural effusions. 3. Focal opacity at the right upper lung could represent artifact, pneumonia, pulmonary edema, or mas s. Follow-up to resolution recommended. ACT 112: Positive. There are findings on this exam that require communication between the performing entity and the patient following Patient Test Result Information Act ([place] Act 112) guidelines. Electronically signed by: Charly Machuca M.D. 10/18/2024 9:40 AM
--- NOTE | 2024-10-18 09:44 | History & Physical Report ---
Date of Service October 18, 2024 Assessment & Plan (1) Flash pulmonary edema: Plan: Blood pressure control. Parenteral Lasix. Monitor intake and output. Serial chest x-ray (2) Acute respiratory failure with hypoxia: Plan: Supplemental oxygen per nasal cannula to maintain saturation greater than 90%. Wean off as tolerated (3) Uncontrolled hypertension: Plan: Currently on nitroglycerin drip. Continue Entresto and metoprolol. IV hydralazine as needed (4) Nonischemic cardiomyopathy: Plan: Probably induced by previous history of chemotherapy for breast cancer. Most recent cardiac echo done in May of this year reveals normal ejection fraction with apparent resolution of the cardiomyopathy. She did have evidence of moderate left ventricular hypertrophy and mild mitral regurgitation (5) Elevated troponin: Plan: No acute EKG changes. No chest pain. Telemetry. Serial levels (6) Adult ADHD: Plan: Stable. Continue current medical management Plan Await cardiology evaluation and recommendations. Appreciate intensive care consultation and recommendations. Hopefully she can be discharged home within the next 2 to 3 days Admission and Anticipated Discharge Date Admission Date: October 18, 2024 History of Present Illness Chief Complaint: Shortness of breath Primary Care Provider: Cash Tejada MD 79-year-old white female with sudden onset of shortness of breath while at rest. She denies any recent lower extremity edema or weight gain. She also denies concurrent chest discomfort. She periodically checks her blood pressure at home and states her most recent systolic was around 200. She was seen at [facility] and received a dose of intravenous Lasix and has had significant diuresis. She was also placed on heparin drip and nitroglycerin drip because her troponin was mildly elevated. She denies chest pain and has no acute EKG changes. I suspect she has flash pulmonary edema from uncontrolled hypertension. She previously had nonischemic cardiomyopathy probably from her history of chemotherapy which has since resolved. Her most recent cardiac echo done in May 2024 reveals normal ejection fraction with moderate LVH and mild MR. The presence of moderate LVH suggest that she does have a history of essential hypertension. She had a left heart catheterization in July 2022 with nonobstructive coronary disease seen at that time. She is resting comfortably at the time of my examination on oxygen per nasal cannula in no acute distress. She is alert and oriented and denies any chest pain. Allergies Allergy/AdvReac Type Severity Reaction Status Date / Time morphine Allergy Unknown Hallucinati Verified 06/10/24 15:19 ng codeine Allergy Nausea Verified 06/10/24 15:19 cyclobenzaprine Allergy Nausea Verified 06/10/24 15:19 [From Flexeril] BANDAIDS Allergy Unknown BUMPS/BLISTERS Uncoded 06/10/24 15:19 ON SKIN Home Medications Medication Instructions Recorded Confirmed Type cholecalciferol (vitamin D3) 125 125 mcg PO QAM 09/03/22 06/10/24 History mcg (5,000 unit) capsule Port Flush #1 ea 06/10/23 06/10/24 Rx folic acid 800 mcg tablet 850 mcg PO QAM 11/04/23 06/10/24 History multivitamin 1 tab PO HS 11/04/23 06/10/24 History aspirin 81 mg tablet,delayed 81 mg PO QAM 12/05/23 06/10/24 History release metoprolol succinate 50 mg 50 mg PO QAM 12/05/23 06/10/24 History tablet,extended release 24 hr bupropion HCl 200 mg tablet,12 hr 200 mg PO BID #60 ea 03/03/24 06/10/24 Rx sustained-release doxepin 3 mg tablet 3 mg PO HS PRN sleep #30 tabs 03/03/24 06/10/24 Rx sacubitril 49 mg-valsartan 51 mg 1 tab PO BID #180 tabs 04/13/24 06/10/24 Rx tablet (Entresto) ciprofloxacin HCl 250 mg tablet 250 mg PO BID #14 tabs 06/10/24 06/10/24 Rx colestipol 1 gram tablet (Colestid) 1 g PO BID #60 tabs 06/10/24 06/10/24 Rx omeprazole 40 mg capsule,delayed 40 mg PO QAM #90 caps 06/10/24 06/10/24 Rx release rosuvastatin 20 mg tablet 20 mg PO QAM #90 tabs 06/10/24 06/10/24 Rx escitalopram oxalate 20 mg tablet See Rx Instructions .Route 10/11/24 Rx .COMPLEX #90 tabs Past Med/Surg History Problem List (Updated 10/18/24 @ 09:42 by Skip Madrid MD) Acute respiratory failure with hypoxia Elevated troponin Uncontrolled hypertension Flash pulmonary edema Shortness of breath NSTEMI (non-ST elevated myocardial infarction) Hypertensive emergency Diarrhea Dysphagia Depression Mitral regurgitation Coronary artery disease Fatigue Adult ADHD Nonischemic cardiomyopathy Palpitations Calcification of coronary artery Abnormal stress echo Cardiomyopathy Microscopic hematuria Urinary symptom or sign Anemia Left inguinal hernia Other microscopic hematuria Left lower quadrant abdominal pain 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 ADD (attention deficit disorder) Vitamin D deficiency (Acute) VAIN (vaginal intraepithelial neoplasia) Hyperlipidemia Hearing loss Osteopenia Depression History of breast cancer 2002 Hypertension Medical History Slow to wake up after anesthesia Nausea and vomiting after administration of anesthetic agent UTI (urinary tract infection) Osteopenia Mitral regurgitation Left inguinal hernia Hypertension Hyperlipidemia Dysphagia Depression Coronary artery disease History of anemia Adult ADHD (attention deficit hyperactivity disorder) Hx of breast cancer History of chemotherapy Surgical History Hx of cardiac cath History of Mohs micrographic surgery for skin cancer H/O colposcopy with cervical biopsy H/O total hysterectomy with bilateral salpingo-oophorectomy (BSO) H/O breast reconstruction History of vascular access device History of colonoscopy History of laparoscopic cholecystectomy History of appendectomy History of bilateral mastectomy Family History Father , 92 years old Hearing loss Family/Other Hearing loss Cancer Mother , 69 years old Colorectal cancer Lung cancer Brother Prostate cancer Hx of CABG Denies family history of Malignant hyperthermia Ovarian cancer Myocardial infarction Breast cancer Bleeding disorder Social History Smoking Status: Former smoker Tobacco Type: Cigarettes Age Started Using Tobacco: 20; Age Quit Using Tobacco: 38; packs per day: 0.5; Cigarettes Per Day: QUIT 35 YRS AGO; Second Hand Exposure: No; Do You Dip or Chew Tobacco: No; Hx Alcohol Use: Yes Alcohol type: beer Alcohol Intake Frequency: 2-4 x/Month Hx Substance Use: No Preferred Language: Uzbek Communication Ability: Effective Visual Impairment: Partially Limited Hearing Ability: Hard of Hearing Director Emergency Required: No Beliefs That Will Affect Care: None marital status: Current Living Situation: Family Current Living Situation Comment: daughter, son-in-law, and grandchildren current occupational status: retired How many Children do You have: 2 Other Information That Helps Us Care for You: No Feels Safe at Home: Yes Safety Concerns: Feels Safe At This Time Childhood Exposure to Second-Hand Smoke: Yes Diet: regular caffeine: Yes (tea, regular soda) during the past year weight has: remained stable Dental Care, Regularly: Yes Physical Activity Frequency: Daily Seatbelt Use: always Sunscreen Use: Yes Do you think of yourself as: straight/heterosexual Gender Identity: Female Assistive Devices: Glasses Review of Systems 2 Review of Systems: Constitutionalno fever or chills ENTno blurred vision, no double vision, no epistaxis, no sore throat Respiratorysudden onset of shortness of breath today preceded by nonproductive cough. No pleuritic type pain. No hemoptysis Cardiacno palpitations, no chest pain, no syncope Amy nausea, vomiting, diarrhea, melena, hematochezia GUno urinary retention, no urinary incontinence, no dysuria, no hematuria Musculoskeletalno joint pain, no muscle tenderness Skinno bruising, no rashes, no pruritus Neurono isolated weakness, no paresthesia, no weakness Psychno depression, no anxiety Physical Exam 2 Physical Exam: General-alert and oriented x3, no fever, no chills HEENT-head atraumatic and normocephalic, pupils equal and reactive to light, extraocular muscles intact Neck-no lymphadenopathy or thyromegaly, trachea midline Chest-bibasilar inspiratory rales. No wheezing. No rhonchi. Cardiac-regular rate and rhythm, normal S1 and S2 Abdomen-normal bowel sounds, no hepatosplenomegaly Extremities-no cyanosis, clubbing, or edema Neuro-cranial nerves II through XII intact, motor and sensory function within normal limits, strength symmetrical, no focal deficits Psych-normal affect, normal mood Results & Data Results & Data Vital Signs (Past 12 Hours) Vital Signs Temp Pulse Pulse Resp BP BP Pulse Ox 10/18/24 09:12 77 23 96 10/18/24 09:00 126/64 10/18/24 09:00 78 26 H 96 10/18/24 08:50 115/61 10/18/24 08:45 79 29 H 94 10/18/24 08:03 85 25 H 10/18/24 07:57 36.9 C 85 18 121/75 93 O2 Del Method O2 Flow Rate 10/18/24 09:12 Nasal Cannula 4 07/21/25 09:00 10/18/24 09:00 10/18/24 08:50 10/18/24 08:45 10/18/24 08:03 10/18/24 07:57 Nasal Cannula 4 Laboratory Results 10/18/24 09:09 Code Status & VTE Plan Code Status Full code PG Care Time/CCT Total # of Minutes Spent Total Time Spent with Patient: Total time spent is greater than 50% in coordination of care (as documented) at patient's floor/unit and/or counseling patient: Coding Level of Care Code 35581 INT INP/OBS CARE 3/75MIN Diagnoses Flash pulmonary edema J81.0 Acute respiratory failure with hypoxia J96.01 Uncontrolled hypertension I10 Nonischemic cardiomyopathy I42.8 Elevated troponin R79.89 Adult ADHD F90.9
[2024-10-18 09:49] LABS: INR 1.0 (0.9-1.1); Partial Thromboplastin Time 31 Seconds (21-31); Prothrombin Time 11.0 Seconds (9.0-12.0)
[2024-10-18 09:54] LABS: Alanine Aminotransferase 19.0 U/L (7-52); Albumin Globulin Ratio 1.5 (0.9-2); Alkaline Phosphatase 61.0 U/L (34-104); Anion Gap 7.0 (3-11); Bilirubin,Total 1.3 mg/dl (0.2-1.0); Blood Urea Nitrogen 20.0 mg/dl (6-23); Calcium 9.4 mg/dl (8.6-10.3); Carbon Dioxide 33.0 mmol/L (21-32); Chloride 102.0 mmol/L (98-107); Creatinine Clr Calc Pharmacy 41.8 ml/min; Globulin 2.6 gm/dl (2.5-4.0); Glucose 113.0 mg/dl (70-99(Fasting)); Potassium 3.4 mmol/L (3.5-5.1); Sodium 142.0 mmol/L (136-145); Total Protein 6.6 gm/dl (6.0-8.3)
[2024-10-18] MEDS: Heparin IV Adult Wt-Based Low-Dose *NO* INITIAL Bolus Protocol IV STA (10:30)
[2024-10-18] MEDS: HEPARIN 25000 UNIT/500 ML D5W IV ONE (10:30)
[2024-10-18] MEDS: FUROSEMIDE 40 MG/4 ML VIAL IV SCH (10:59)
[2024-10-18] MEDS: METOPROLOL SUCC 50MG EXT REL TAB PO SCH (10:59)
[2024-10-18] MEDS: POTASSIUM CHLORIDE CRTAB 20 MEQ TABCR PO STA (10:59)
--- NOTE | 2024-10-18 11:00 | XCELERA ---
[id number]
--- NOTE | 2024-10-18 11:14 | Cardiology Consultation ---
Date of Consultation October 18, 2024 Assessment & Plan (1) Flash pulmonary edema: (2) Elevated troponin: (3) Nonischemic cardiomyopathy: Plan 1. Pulmonary edema: The rapid development and resolution of her pulmonary edema is consistent with left ventricular ischemia or pressure overload rather than fluid overload. I do not believe she has a lot of excess fluid and currently appears to be doing well with her edema. The cause is probably either accelerated hypertension in the setting of her known disease, or progression of disease but again in association with hypertension. Anxiety may play a role. 2. Elevated troponin: Her troponin elevation is likely demand ischemia, however we do not know that she has not had progressive atherosclerosis since her catheterization 2 years ago. I would trend her troponins so we know the course of it, but in association with anterior ECG changes and anterior wall motion abnormalities it is consistent with severe ischemia or infarction. We will need a catheterization to determine whether she has significant progression of dis ease which would require intervention. 3. Cardiomyopathy: In the past she had a nonischemic cardiomyopathy with full recovery on an echocardiogram earlier this year. She was not on full dose medications due to orthostatic symptoms but evidently it was sufficient to correct her cardiomyopathy. Her ejection fraction is now reduced again but now with wall motion abnormalities, so she may now have an ischemic cardiomyopathy. I would continue her current medical regimen until we sorted out with a catheterization. I discussed catheterization with her and her family, they are in agreement and w tai will plan on doing this tomorrow if possible. History of Present Illness Reason for Consultation: Pulmonary edema Attending Physician: Skip Madrid MD History of Present Illness This is a 79-year-old woman who has a history of hypertension, dyslipidemia and breast cancer for which she has had x-ray therapy and chemotherapy. In July 2022 she had moderate left ventricular dysfunction identified on a stress echo (resting EF 35 to 40% with global hypokinesis). She had a catheterization done on August 22, 2022 where she had 30 to 40% mid LAD stenosis, mild proximal circumflex disease and late proximal to early mid RCA stenosis of 40% as well as mid to distal diffuse RCA disease of 20 to 30%. Subsequently on April 30, 2019 for an echocardiogram showed mild global hypokinesis with ejection fraction 45 to 50%. It was felt that her cardiomyopathy was due to the prior chemotherapy. She was taking Entresto at the mid dose, metoprolol succinate 50 mg daily for her left ventricular dysfunction. Her medications were not increased due to orthostatic symptoms. Another echocardiogram done May 07, 2024 showed normal left ventricular size and function with an ejection fraction of 55% and no wall motion abnormalities. She did have moderate concentric left ventricular hypertrophy, a sclerotic aortic valve without stenosis and mild mitral regurgitation. She presented to the hospital today with sudden onset of shortness of breath at rest, she did not have chest discomfort she reports her systolic blood pressure being around 200. She was seen at [facility] in [place] and received intravenous Lasix, and was transferred here with what was felt to be a hypertensive emergency. She was transferred on a nitroglycerin drip. An echocardiogram here demonstrates normal left ventricular size with a new LAD wa ll motion abnormality and ejection fraction of 40 to 45%. No significant valvular disease. High-sensitivity troponin measurement here was elevated to 619. BNP was elevated to almost 2000. Her electrocardiogram here demonstrates sinus rhythm with nonspecific ST-T abnormalities and anterior T wave inversion, these precordial changes are new compared to July 2022. On close questioning this event happened quite quickly, she had a busy weekend including going to a graduation green party and was not having any difficulty until just before her presentation to [facility]. She specifically denies any chest discomfort either leading up to or during or after this event, prior to the event she was fairly active and was not having trouble with exertion and had no exertional symptoms. She denies orthopnea or PND, she does have some trouble with orthostasis which has been longstanding but she had been taking her medications. She had no palpitations, lightheadedness or dizziness. Allergies Allergy/AdvReac Type Severity Reaction Status Date / Time morphine Allergy Unknown Hallucinati Verified 06/10/24 15:19 ng codeine Allergy Nausea Verified 06/10/24 15:19 cyclobenzaprine Allergy Nausea Verified 06/10/24 15:19 [From Flexeril] BANDAIDS Allergy Unknown BUMPS/BLISTERS Uncoded 06/10/24 15:19 ON SKIN Home Medications Medication Instructions Recorded Confirmed Type cholecalciferol (vitamin D3) 125 125 mcg PO QAM 09/03/22 10/18/24 History mcg (5,000 unit) capsule Port Flush #1 ea 06/10/23 06/10/24 Rx folic acid 800 mcg tablet 850 mcg PO QAM 11/04/23 10/18/24 History multivitamin 1 tab PO HS 11/04/23 10/18/24 History aspirin 81 mg tablet,delayed 81 mg PO QAM 12/05/23 10/18/24 History release metoprolol succinate 50 mg 50 mg PO QAM 12/05/23 10/18/24 History tablet,extended release 24 hr doxepin 3 mg tablet 3 mg PO HS PRN sleep #30 tabs 03/03/24 10/18/24 Rx sacubitril 49 mg-valsartan 51 mg 1 tab PO BID #180 tabs 04/13/24 10/18/24 Rx tablet (Entresto) ciprofloxacin HCl 250 mg tablet 250 mg PO BID #14 tabs 06/10/24 06/10/24 Rx colestipol 1 gram tablet (Colestid) 1 g PO BID #60 tabs 06/10/24 06/10/24 Rx omeprazole 40 mg capsule,delayed 40 mg PO QAM #90 caps 06/10/24 10/18/24 Rx release rosuvastatin 20 mg tablet 20 mg PO QAM #90 tabs 06/10/24 10/18/24 Rx escitalopram oxalate 20 mg tablet See Rx Instructions .Route 10/11/24 10/18/24 Rx .COMPLEX #90 tabs bupropion HCl 200 mg tablet,12 hr 200 mg PO QAM 10/18/24 10/18/24 History sustained-release Patient History Medical History Slow to wake up after anesthesia Nausea and vomiting after administration of anesthetic agent UTI (urinary tract infection) started on 12/02/23, tx w/abx. Osteopenia Mitral regurgitation f/u [facility] Left inguinal hernia Hypertension Hyperlipidemia Dysphagia "sometimes food gets stuck" Depression Coronary artery disease History of anemia no current issues Adult ADHD (attention deficit hyperactivity disorder) Hx of breast cancer dx 2002, sx/chemo/xrt History of chemotherapy 2002 w/right breast Surgical History Hx of cardiac cath 07/2022, abn. stress test, [facility], no stents; f/u [facility] History of Mohs micrographic surgery for skin cancer 2 areas on face removed H/O colposcopy with cervical biopsy H/O total hysterectomy with bilateral salpingo-oophorectomy (BSO) 05/04/18 H/O breast reconstruction History of vascular access device A port for breast cancer, still in place History of colonoscopy 04/27/19 repeat 5yrs History of laparoscopic cholecystectomy 2013 History of appendectomy History of bilateral mastectomy 2003 Family History Father , 92 years old Hearing loss Family/Other Hearing loss Cancer Mother , 69 years old Colorectal cancer Lung cancer Brother Prostate cancer Hx of CABG Denies family history of Malignant hyperthermia Ovarian cancer Myocardial infarction Breast cancer Bleeding disorder Social History Smoking Status: Former smoker Tobacco Type: Cigarettes Age Started Using Tobacco: 20; Age Quit Using Tobacco: 38; packs per day: 0.5; Cigarettes Per Day: QUIT 35 YRS AGO; Second Hand Exposure: No; Do You Dip or Chew Tobacco: No; Hx Alcohol Use: Yes Alcohol type: beer Alcohol Intake Frequency: 2-4 x/Month Hx Substance Use: No Preferred Language: Croatian Communication Ability: Effective Visual Impairment: Partially Limited Hearing Ability: Hard of Hearing 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 Beliefs That Will Affect Care: None marital status: Current Living Situation: Family Current Living Situation Comment: daughter, son-in-law, and grandchildren current occupational status: retired How many Children do You have: 2 Feels Safe at Home: Yes Childhood Exposure to Second-Hand Smoke: Yes Diet: regular caffeine: Yes (tea, regular soda) during the past year weight has: remained stable Dental Care, Regularly: Yes Physical Activity Frequency: Daily Seatbelt Use: always Sunscreen Use: Yes Do you think of yourself as: straight/heterosexual Gender Identity: Female Assistive Devices: Glasses Review of Systems Review of Systems: All systems reviewed & are unremarkable except as noted in HPI & below Physical Exam Physical Exam: Constitutional: Alert, cooperative and in no distress. HEENT: Unremarkable Neck: No jugular venous distention, carotid pulses are normal and equal bilaterally without bruits. Pulmonary: Decreased breath sounds in the bases bilaterally. Cardiac: Regular rhythm with no murmur, gallop or rub. Abdomen: Soft, nontender with normal bowel sounds. Extremities: No edema. Neurologic: No focal findings. Skin: No rash, ecchymoses or petechiae. Results & Data Vital Signs (Past 12 Hours) Vital Signs Temp Pulse Pulse Resp BP BP Pulse Ox 10/18/24 11:06 75 22 94 10/18/24 11:00 113/62 10/18/24 10:57 77 24 93 10/18/24 10:48 77 20 94 10/18/24 10:30 153/76 H 10/18/24 10:27 79 15 94 10/18/24 10:20 141/66 H 10/18/24 10:18 77 20 90 10/18/24 10:10 135/63 10/18/24 10:00 126/67 10/18/24 10:00 72 22 93 10/18/24 09:50 120/70 10/18/24 09:40 133/64 10/18/24 09:39 76 22 93 10/18/24 09:30 130/57 L 10/18/24 09:30 130/57 L 10/18/24 09:30 77 19 93 10/18/24 09:27 76 20 93 10/18/24 09:20 134/64 10/18/24 09:16 131/63 10/18/24 09:12 77 23 96 10/18/24 09:00 126/64 10/18/24 09:00 78 26 H 96 10/18/24 08:50 115/61 10/18/24 08:45 79 29 H 94 10/18/24 08:03 85 25 H 10/18/24 07:57 36.9 C 85 18 121/75 93 O2 Del Method O2 Flow Rate 10/18/24 11:06 Nasal Cannula 1 10/18/24 11:00 10/18/24 10:57 10/18/24 10:48 10/18/24 10:30 10/18/24 10:27 10/18/24 10:20 10/18/24 10:18 10/18/24 10:10 10/18/24 10:00 10/18/24 10:00 10/18/24 09:50 10/18/24 09:40 10/18/24 09:39 10/18/24 09:30 10/18/24 09:30 10/18/24 09:30 10/18/24 09:27 10/18/24 09:20 10/18/24 09:16 10/18/24 09:12 Nasal Cannula 4 10/18/24 09:00 10/18/24 09:00 10/18/24 08:50 10/18/24 08:45 10/18/24 08:03 10/18/24 07:57 Nasal Cannula 4 Laboratory Results Cardiac Enzymes 10/18/24 Range/Units 09:09 AST 22 (13-39) U/L Troponin I High Sens 619.3 H* (0-14) pg/ml B-Natriuretic Peptide 1947 H (0-100) pg/ml Coagulation 10/18/24 10/18/24 Range/Units 09:09 09:14 PT 11.0 (9.0-12.0) Seconds APTT 31 (21-31) Seconds B-Natriuretic Peptide 1947 H (0-100) pg/ml CBC 10/18/24 Range/Units 09:09 WBC 12.42 H (4.8-10.8) K/ul RBC 3.79 L (4.20-5.40) M/uL Hgb 11.6 L (12.0-16.0) g/dl Hct 35.6 L (37.0-47.0) % Plt Count 134 (130-400) K/uL Neut # (Auto) 9.71 H (1.40-6.50) K/uL Lymph # (Auto) 1.83 (1.20-3.40) K/uL Person # (Auto) 0.78 H (0.11-0.59) K/uL Eos # (Auto) 0.01 (0.00-0.50) K/uL Baso # (Auto) 0.03 (0.00-0.20) K/uL Comprehensive Metabolic Panel 10/18/24 Range/Units 09:09 Sodium 142 (136-145) mmol/L Potassium 3.4 L (3.5-5.1) mmol/L Chloride 102 (98-107) mmol/L Carbon Dioxide 33 H (21-32) mmol/L BUN 20 (6-23) mg/dl Creatinine 0.97 (0.6-1.2) mg/dl Glucose 113 H (70-99(Fasting)) mg/dl Calcium 9.4 (8.6-10.3) mg/dl AST 22 (13-39) U/L ALT 19 (7-52) U/L Alkaline Phosphatase 61 (34-104) U/L Total Protein 6.6 (6.0-8.3) gm/dl Albumin 4.0 (3.4-5.0) gm/dl Intake and Output 10/17/24 10/18/24 10/18/24 22:59 06:59 14:59 Intake Total 150 / 150 Output Total 350 / 350 Balance -200 / -200 Intake: Oral 150 / 150 Output: Urine Amount (Catheter) 350 / 350 Temp Sensing Covarrubias 350 / 350 Other: Weight 63.4 kg Weight Measurement Method Built in [facility] Patient Weight 10/19/24 06:59 Weight 63.4 kg Diagnostic Findings Telemetry: Sinus rhythm, no significant arrhythmia PG Care Time/CCT Total # of Minutes Spent Total Time Spent with Patient: Total time spent is greater than 50% in coordination of care (as documented) at patient's floor/unit and/or counseling patient: Coding Level of Care Code 51248 INT INP/OBS CARE 3/75MIN Diagnoses Flash pulmonary edema J81.0 Elevated troponin R79.89 Nonischemic cardiomyopathy I42.8
[2024-10-18] MEDS: cefTRIAXone SODIUM 2,000 MG/50 ML BAG IV SCH (15:01)
[2024-10-18] MEDS: ACETAMINOPHEN 325 MG TAB PO PRN (15:17)
[2024-10-18] MEDS ORDERED: HEPARIN 100 UNIT/ML 5ML FLUSH FLUSH PRN (15:20)
[2024-10-18 15:39] LABS: ANTI-Xa, UFH(UnfractionatedHep 0.18 IU/ml (0.3-0.7)
--- NOTE | 2024-10-18 15:43 | Electrocardiogram Report ---
Test Reason : Blood Pressure : */* mmHG Vent. Rate : 75 BPM Atrial Rate : 75 BPM P-R Int : 178 ms QRS Dur : 94 ms QT Int : 432 ms P-R-T Axes : 40 2 88 degrees QTcB Int : 482 ms Normal sinus rhythm Nonspecific ST and T wave abnormality QTcB >= 480 msec Abnormal ECG When compared with ECG of 13-Apr-2018 16:12, ST now depressed in Inferior leads Non-specific change in ST segment in Anterior leads T wave inversion now evident in Lateral leads Confirmed by Jw Leach ([id number]) on 10/18/2024 3:43:19 PM Referred By: Artur Frye Confirmed By: Jw Leach
[2024-10-18] MEDS: NITROGLYCERIN/D5W 100 MCG/ML BTL ONE (21:03)
[2024-10-18 22:13] LABS: ANTI-Xa, UFH(UnfractionatedHep 0.23 IU/ml (0.3-0.7)
[2024-10-19 05:06] LABS: Hematocrit (blood only) 32.0 % (37.0-47.0); Hemoglobin 10.5 g/dl (12.0-16.0); Immature Granulocytes # (auto) 0.01 K/uL (0.01-0.20); Immature Granulocytes % (auto) 0.1 %; Mean Corpuscular Hemoglobin 31.1 pg (25.0-34.0); Mean Corpuscular Volume 94.7 fL (80.0-100.0); Platelet Count 108 K/uL (130-400); RDW Standard Deviation 46.4 fL (36.4-46.3); Red Blood Count 3.38 M/uL (4.20-5.40); White Blood Count 7.94 K/ul (4.8-10.8)
[2024-10-19 05:22] LABS: Anion Gap 6.0 (3-11); Blood Urea Nitrogen 18.0 mg/dl (6-23); Calcium 8.4 mg/dl (8.6-10.3); Carbon Dioxide 35.0 mmol/L (21-32); Chloride 101.0 mmol/L (98-107); Creatinine Clr Calc Pharmacy 39.0 ml/min; Glucose 100.0 mg/dl (70-99(Fasting)); Magnesium 1.3 mg/dl (1.7-2.4); Potassium 3.2 mmol/L (3.5-5.1); Sodium 142.0 mmol/L (136-145)
[2024-10-19 05:29] LABS: ANTI-Xa, UFH(UnfractionatedHep 0.29 IU/ml (0.3-0.7)
[2024-10-19 05:32] LABS: INR 1.0 (0.9-1.1); Prothrombin Time 11.2 Seconds (9.0-12.0)
--- NOTE | 2024-10-19 08:02 | Critical Care Progress Note ---
Date of Service October 19, 2024 Assessment & Plan (1) Hypertensive emergency: (2) NSTEMI (non-ST elevated myocardial infarction): (3) Adult ADHD: (4) Nonischemic cardiomyopathy: (5) Depression: (6) History of breast cancer: (7) Hypertension: (8) Shortness of breath: (9) Acute respiratory failure with hypoxia: Plan Reason Critically Ill: 79-year-old female admitted to the hospital/ICU for NSTEMI and hypertensive emergency She is being transferred from [facility] Past medical history: Hypertension, systolic CHF, anxiety/depression, dyslipidemia Neuro - [facility] ICU: Negative --Anxiety/depression Continue with escitalopram as well as bupropion Cardiac - -- Hypertensive emergency --> resolved On nitro drip while being transferred from [place] Will try to titrated off --NSTEMI Does seem to have ST depression on the lateral leads with history of nonischemic cardiomyopathy 2D echo 10/18/2024: EF 40-45%, moderate left ventricular hypertrophy, RV normal in size and function --Nonischemic cardiomyopathy On Entresto, metoprolol 50 mg, rosuvastatin 20 mg and aspirin at home 2D echo 05/07/2024: EF 55%, moderate concentric LVH, sclerotic aortic valve without stenosis, mild MR, grade 1 diastolic dysfunction Respiratory - --Acute hypoxic respiratory failure Likely secondary to pulmonary edema, questionable pneumonia Continue with oxygen to keep O2 saturation between 90-92% GI - -- Chronic diarrhea Secondary to lactose intolerance Continue to monitor RENAL/LYTES - -- Monitor BUNs/creatinine Avoid nephrotoxic medication ENDO - -- ICU hyperglycemia protocol HEME - --Thrombocytopenia New in onset Continue to monitor -- Monitor H&H --History of breast cancer Initially 1987 with multiple relapse Got chemotherapy and radiation x 2 Last relapse was in 2002 s/p bilateral mastectomy ID - -- Multifocal pulmonary opacities could be from pulmonary edema but given PCT elevated and low grade fever will give antibiotics PCT 0.69 Musculoskeletal - --Right shoulder pain Has been going on since May 2023 --Prophylaxis VTE: Heparin drip GI: Pantoprazole Lines: Peripheral Diet: N.p.o. Plan: In/out: -2.9 L, urine output 4050 Decrease Lasix to 40 mg on a daily basis given the creatinine is bumping up. Patient to have cardiac cath today Continue with current drip Potassium and magnesium being replaced Patient requesting if she could speak with the psych, consult will be ordered Continue with antibiotics Please note the above document was generated using voice recognition software. It may contain grammatical, syntax or spelling errors.Any formal questions or concerns about the content, text or information contained within the body of this dictation should be directly addressed to the provider for clarification. Admission and Anticipated Discharge Date Admission Date: October 18, 2024 Subjective Patient seen and examined at bedside. No acute distress, no adverse events overnight Patient was saturating 96% on 1 L, on asking her to take deep breaths it went up to 99%. I discontinued the oxygen Denied any chest pain Stated that shortness of breath is improved No nausea or vomiting No dizziness. Review of Systems 2 Review of Systems: All systems reviewed & are unremarkable except as noted in Subjective Physical Exam 2 Physical Exam: Constitutional: No acute distress HEENT: EOMI, PERRLA Respiratory system: Good air entry bilaterally, no wheeze, no rhonchi, mild crackles right lower lobe, improved from before CVS: S1-S2 positive, no murmurs or gallops Abdomen: Soft, nontender, nondistended, positive bowel sounds x4 Extremities: +2 pulses bilaterally radialis/ dorsalis pedis, no cyanosis, no edema Neuro: Awake alert oriented x3 Psych: Normal mood and affect G/U: No Covarrubias Skin: no rashes, warm and dry Lymphatic: no cervical or axillary lymphadenopathy Results & Data Results & Data Vital Signs (Past 12 Hours) Vital Signs Pulse Resp BP Pulse Ox 10/19/24 05:36 62 27 H 94 10/19/24 05:00 116/44 L 10/19/24 05:00 116/44 L 10/19/24 04:57 59 L 19 93 10/19/24 04:00 62 19 93 10/19/24 03:00 117/50 L 10/19/24 03:00 59 L 21 92 10/19/24 02:00 60 14 93 10/19/24 01:00 106/41 L 10/19/24 01:00 61 19 95 10/19/24 00:15 60 20 93 10/19/24 00:00 114/48 L 10/18/24 23:48 60 20 93 10/18/24 23:06 61 18 94 10/18/24 23:00 129/54 L 10/18/24 22:48 62 20 93 10/18/24 22:03 64 21 96 10/18/24 22:00 103/43 L 10/18/24 22:00 103/43 L 10/18/24 21:30 70 15 127/99 97 10/18/24 21:06 68 22 98 10/18/24 20:42 62 16 95 10/18/24 20:30 126/49 L 10/18/24 20:30 126/49 L 10/18/24 20:18 66 21 95 10/18/24 20:09 65 20 96 Laboratory Results 10/19/24 04:27 10/19/24 04:27 Coding Level of Care Code 75466 SUB INP/OBS CARE 2MIN Diagnoses Hypertensive emergency I16.1 NSTEMI (non-ST elevated myocardial infarction) I21.4 Adult ADHD F90.9 Nonischemic cardiomyopathy I42.8 Depression F32.9 History of breast cancer Z85.3 Primary hypertension I10 Hypertension type: primary hypertension Shortness of breath R06.02 Acute respiratory failure with hypoxia J96.01 (7) Hypertension Hypertension type: primary hypertension Qualified Code(s): I10 - Essential (primary) hypertension
[2024-10-19] MEDS: POTASSIUM CHLORIDE CRTAB 20 MEQ TABCR PO STA (08:08)
[2024-10-19] MEDS: MAGNESIUM SULFATE / D5W 1 GM/100 ML BAG IV SCH (08:09)
[2024-10-19] MEDS: FUROSEMIDE 40 MG/4 ML VIAL IV SCH (08:09)
[2024-10-19] MEDS: POTASSIUM CHLORIDE / WTR 10 MEQ/100 ML PLCT IV SCH (08:09)
--- NOTE | 2024-10-19 08:39 | XRay Report ---
EXAM: XR chest 1V portable CLINICAL HISTORY: Pulm edema. TECHNIQUE: An X-ray image of the chest is obtained in AP projection. COMPARISON: CXR dated 04/13/2018. FINDINGS: Pulmonary Parenchyma: Mild right pleural effusion obliterating the right costophrenic angle (new finding). Hypovelemic right lung, the right middle and lower lung zones show diffuse groundglass opacity, along with faint consolidation opacity at the right lung apex (new finding). The left lung is clear. No pulmonary nodules are identified. No evidence of left pleural effusion or pleural thickening. Port-a-cath with its tip at the atrio-caval junction (Unchanged). Right axillary and right hilar surgical clips. Another unchanged clip over the left lower lung zone (Unchanged). Heart and Mediastinum: Heart size and shape are normal. No mediastinal widening or masses. No hilar or mediastinal lymphadenopathy. Bony Thorax: Bony thorax appears intact without fractures or deformities. Soft Tissues: Soft tissues overlying the chest wall are unremarkable. IMPRESSION: 1. Mild right pleural effusion obliterating the right costophrenic angle (new finding). 2. Hypovelemic right lung, with right middle and lower zonal diffuse opacification, and faint consolidation opacity at the right lung apex (new finding) could be infectious/ inflammatory among other differentials. Clinical correlation advised, and if needed contrast contrast-enhanced CT chest study. 3. Port-a-cath with its tip at the atrio-caval junction (Unchanged). Electronically signed by Jw Kang 10-19-2024 08:39 AM
[2024-10-19] MEDS: ASPIRIN 81 MG ECTAB PO SCH (08:46)
[2024-10-19] MEDS: ROSUVASTATIN CALCIUM 20 MG TAB PO SCH (08:46)
--- NOTE | 2024-10-19 10:47 | Pre Anesthesia Assessment ---
Date of Service October 19, 2024 Pre Sedation Assessment Vital Signs Temp Pulse Resp BP Pulse Ox O2 Del Method O2 Flow Rate 10/19/24 10:00 140/55 L 10/19/24 10:00 140/55 L 10/19/24 09:51 61 20 92 10/19/24 09:18 63 16 92 10/19/24 09:01 129/60 10/19/24 08:54 66 16 95 10/19/24 08:40 149/69 H 10/19/24 08:36 63 20 95 10/19/24 08:09 58 L 16 94 10/19/24 08:02 36.5 C 10/19/24 08:00 135/57 L 10/19/24 07:54 57 L 20 96 10/19/24 07:03 58 L 20 92 10/19/24 07:00 126/60 10/19/24 05:36 62 27 H 94 10/19/24 05:00 116/44 L 10/19/24 05:00 116/44 L 10/19/24 04:57 59 L 19 93 10/19/24 04:00 62 19 93 10/19/24 03:00 117/50 L 10/19/24 03:00 59 L 21 92 10/19/24 02:00 60 14 93 10/19/24 01:00 106/41 L 10/19/24 01:00 61 19 95 10/19/24 00:15 60 20 93 10/19/24 00:00 114/48 L 10/18/24 23:48 60 20 93 10/18/24 23:06 61 18 94 10/18/24 23:00 129/54 L 10/18/24 22:48 62 20 93 10/18/24 22:03 64 21 96 10/18/24 22:00 103/43 L 10/18/24 22:00 103/43 L 10/18/24 21:30 70 15 127/99 97 10/18/24 21:06 68 22 98 10/18/24 20:42 62 16 95 10/18/24 20:30 126/49 L 10/18/24 20:30 126/49 L 10/18/24 20:18 66 21 95 10/18/24 20:09 65 20 96 10/18/24 19:36 63 20 92 10/18/24 19:30 117/58 L 10/18/24 19:30 117/58 L 10/18/24 19:24 60 20 92 10/18/24 19:00 108/69 10/18/24 19:00 108/69 10/18/24 19:00 108/69 10/18/24 19:00 67 21 96 10/18/24 18:03 64 22 94 10/18/24 18:00 114/51 L 10/18/24 17:30 68 18 122/56 L 92 Nasal Cannula 1 10/18/24 17:06 65 21 94 10/18/24 17:00 119/57 L 10/18/24 16:51 65 24 95 10/18/24 16:48 65 23 93 10/18/24 16:30 118/76 10/18/24 16:24 72 20 94 10/18/24 16:12 67 22 95 10/18/24 16:00 109/64 10/18/24 15:57 67 20 94 10/18/24 15:35 68 10/18/24 15:30 121/59 L 10/18/24 15:27 72 17 91 10/18/24 15:09 36.8 C 10/18/24 15:00 75 20 94 10/18/24 14:30 112/56 L 10/18/24 14:30 69 21 93 10/18/24 14:06 66 21 91 10/18/24 14:00 110/51 L 10/18/24 13:57 68 22 91 10/18/24 13:30 37.6 C H 67 21 91 10/18/24 13:30 110/46 L 10/18/24 13:00 124/61 10/18/24 13:00 124/61 10/18/24 13:00 37.6 C H 69 22 95 10/18/24 12:30 37.7 C H 69 20 93 10/18/24 12:30 126/56 L 10/18/24 12:03 37.7 C H 72 20 91 10/18/24 12:00 115/56 L 10/18/24 11:54 72 20 93 10/18/24 11:41 Nasal Cannula 10/18/24 11:30 77 21 95 1 10/18/24 11:30 144/71 H 10/18/24 11:06 75 22 94 Nasal Cannula 1 10/18/24 11:00 113/62 10/18/24 10:57 77 24 93 10/18/24 10:48 77 20 94 Cardiovascular RRR, no murmur, no edema Respiratory normal respiratory effort, lungs clear to auscultation Pre-Sedation Airway Assessment Smoking Status: Former smoker Hx Sleep Apnea: No Short, Thick Neck: No Thyromental Distance: > or= 3.5 Finger Breadths Oral Cavity: + WNL Mallampati Class: III ASA: ASA4 NPO Status Date of Last Intake of Fluids: 10/19/24 Time of Last Intake of Fluids: 07:00 Date of Last Intake of Solid Food: 10/18/24 Time of Last Intake of Solid Foods: 21:00 Notes The planned sedation has been discussed with the patient. Informed Consent was obtained. I have identified the patient, determined the appropriateness of sedation and have assessed the patient immediately prior to the procedure. All medicine(s) and interventions are by my order.
[2024-10-19] MEDS: niCARdipine 2,000 MCG/20 ML SYR ONE (10:59)
[2024-10-19] MEDS: NITROGLYCERIN/D5W 100MCG/ML 20ML SYR ONE (10:59)
--- NOTE | 2024-10-19 11:06 | Hospitalist Progress Note ---
Date of Service October 19, 2024 Assessment & Plan (1) Flash pulmonary edema: Plan: Much improved with Lasix diuresis and blood pressure control. Monitor intake and output. Serial chest x-ray (2) Acute respiratory failure with hypoxia: Plan: Supplemental oxygen per nasal cannula to maintain saturation greater than 90%. She is only requiring low-flow oxygen at this time. Wean off as tolerated (3) Uncontrolled hypertension: Plan: Much improved now. She is off the nitroglycerin drip. Continue Entresto and metoprolol. IV hydralazine as needed (4) Nonischemic cardiomyopathy: Plan: Probably induced by previous history of chemotherapy for breast cancer. Most recent cardiac echo done in May of this year reveals normal ejection fraction with apparent resolution of the cardiomyopathy. She did have evidence of moderate left ventricular hypertrophy and mild mitral regurgitation. Current echo reveals ejection fraction of 40% with new anterior wall motion abnormalities. (5) Elevated troponin: Plan: No acute EKG changes. No chest pain. Telemetry. Serial levels (6) Adult ADHD: Plan: Stable. Continue current medical management Plan Hopeful discharge to home within the next 2 to 3 days left heart catheterization today, October 19. Continue to treat CHF with parenteral Lasix and wean off oxygen as tolerated. Continue blood pressure control measures. Admission and Anticipated Discharge Date Admission Date: October 18, 2024 Subjective Alert and oriented. Cardiology consultation appreciated. She will undergo left heart catheterization today, October 19. Cardiac echo reveals ejection fraction of approximately 40% with new anterior wall motion abnormalities. She may have an occult LAD lesion. Brisk diuresis so far with parenteral Lasix therapy. Blood pressure is now controlled. She remains on a heparin drip. Potassium and magnesium replacement continue. Review of Systems 2 Review of Systems: Constitutionalno fever or chills ENTno blurred vision, no double vision, no epistaxis, no sore throat Respiratorysudden onset of shortness of breath today preceded by nonproductive cough. No pleuritic type pain. No hemoptysis Cardiacno palpitations, no chest pain, no syncope Amy nausea, vomiting, diarrhea, melena, hematochezia GUno urinary retention, no urinary incontinence, no dysuria, no hematuria Musculoskeletalno joint pain, no muscle tenderness Skinno bruising, no rashes, no pruritus Neurono isolated weakness, no paresthesia, no weakness Psychno depression, no anxiety Physical Exam 2 Physical Exam: General-alert and oriented x3, no fever, no chills HEENT-head atraumatic and normocephalic, pupils equal and reactive to light, extraocular muscles intact Neck-no lymphadenopathy or thyromegaly, trachea midline Chest-bibasilar inspiratory rales have improved. No wheezing. No rhonchi. Cardiac-regular rate and rhythm, normal S1 and S2 Abdomen-normal bowel sounds, no hepatosplenomegaly Extremities-no cyanosis, clubbing, or edema Neuro-cranial nerves II through XII intact, motor and sensory function within normal limits, strength symmetrical, no focal deficits Psych-normal affect, normal mood Results & Data Results & Data Vital Signs (Past 12 Hours) Vital Signs Temp Pulse Resp BP Pulse Ox 10/19/24 10:00 140/55 L 10/19/24 10:00 140/55 L 10/19/24 09:51 61 20 92 10/19/24 09:18 63 16 92 10/19/24 09:01 129/60 10/19/24 08:54 66 16 95 10/19/24 08:40 149/69 H 10/19/24 08:36 63 20 95 10/19/24 08:09 58 L 16 94 10/19/24 08:02 36.5 C 10/19/24 08:00 135/57 L 10/19/24 07:54 57 L 20 96 10/19/24 07:03 58 L 20 92 10/19/24 07:00 126/60 10/19/24 05:36 62 27 H 94 10/19/24 05:00 116/44 L 10/19/24 05:00 116/44 L 10/19/24 04:57 59 L 19 93 10/19/24 04:00 62 19 93 10/19/24 03:00 117/50 L 10/19/24 03:00 59 L 21 92 10/19/24 02:00 60 14 93 10/19/24 01:00 106/41 L 10/19/24 01:00 61 19 95 10/19/24 00:15 60 20 93 10/19/24 00:00 114/48 L 10/18/24 23:48 60 20 93 10/18/24 23:06 61 18 94 Laboratory Results 10/19/24 04:27 10/19/24 04:27 PG Care Time/CCT Total # of Minutes Spent Total Time Spent with Patient: Total time spent is greater than 50% in coordination of care (as documented) at patient's floor/unit and/or counseling patient: Coding Level of Care Code 41624 SUB INP/OBS CARE 3/50MIN Diagnoses Flash pulmonary edema J81.0 Acute respiratory failure with hypoxia J96.01 Uncontrolled hypertension I10 Nonischemic cardiomyopathy I42.8 Elevated troponin R79.89 Adult ADHD F90.9
[2024-10-19] MEDS: HEPARIN (PORCINE) 1000 UNIT/ML 10 ML (CATH LAB USE ONLY) ONE (11:27)
[2024-10-19] MEDS: MIDAZOLAM HCL 1 MG/ML 2ML VIAL ONE (11:27)
[2024-10-19] MEDS: OPTIRAY 350 ONE (11:28)
--- NOTE | 2024-10-19 11:31 | Post Anesthesia Assessment ---
Date of Service October 19, 2024 Post Sedation Assessment Vital Signs Temp Pulse Resp BP Pulse Ox O2 Del Method O2 Flow Rate 10/19/24 10:00 140/55 L 10/19/24 10:00 140/55 L 10/19/24 09:51 61 20 92 10/19/24 09:18 63 16 92 10/19/24 09:01 129/60 10/19/24 08:54 66 16 95 10/19/24 08:45 Nasal Cannula 1 10/19/24 08:40 149/69 H 10/19/24 08:36 63 20 95 10/19/24 08:09 58 L 16 94 10/19/24 08:02 36.5 C 10/19/24 08:00 135/57 L 10/19/24 07:54 57 L 20 96 10/19/24 07:03 58 L 20 92 10/19/24 07:00 126/60 10/19/24 05:36 62 27 H 94 10/19/24 05:00 116/44 L 10/19/24 05:00 116/44 L 10/19/24 04:57 59 L 19 93 10/19/24 04:00 62 19 93 10/19/24 03:00 117/50 L 10/19/24 03:00 59 L 21 92 10/19/24 02:00 60 14 93 10/19/24 01:00 106/41 L 10/19/24 01:00 61 19 95 10/19/24 00:15 60 20 93 10/19/24 00:00 114/48 L 10/18/24 23:48 60 20 93 10/18/24 23:06 61 18 94 10/18/24 23:00 129/54 L 10/18/24 22:48 62 20 93 10/18/24 22:03 64 21 96 10/18/24 22:00 103/43 L 10/18/24 22:00 103/43 L 10/18/24 21:30 70 15 127/99 97 10/18/24 21:06 68 22 98 10/18/24 20:42 62 16 95 10/18/24 20:30 126/49 L 10/18/24 20:30 126/49 L 10/18/24 20:18 66 21 95 10/18/24 20:09 65 20 96 10/18/24 19:36 63 20 92 10/18/24 19:30 117/58 L 10/18/24 19:30 117/58 L 10/18/24 19:24 60 20 92 10/18/24 19:00 108/69 10/18/24 19:00 108/69 10/18/24 19:00 108/69 10/18/24 19:00 67 21 96 10/18/24 18:03 64 22 94 10/18/24 18:00 114/51 L 10/18/24 17:30 68 18 122/56 L 92 Nasal Cannula 1 10/18/24 17:06 65 21 94 10/18/24 17:00 119/57 L 10/18/24 16:51 65 24 95 10/18/24 16:48 65 23 93 10/18/24 16:30 118/76 10/18/24 16:24 72 20 94 10/18/24 16:12 67 22 95 10/18/24 16:00 109/64 10/18/24 15:57 67 20 94 10/18/24 15:35 68 10/18/24 15:30 121/59 L 10/18/24 15:27 72 17 91 10/18/24 15:09 36.8 C 10/18/24 15:00 75 20 94 10/18/24 14:30 112/56 L 10/18/24 14:30 69 21 93 10/18/24 14:06 66 21 91 10/18/24 14:00 110/51 L 10/18/24 13:57 68 22 91 10/18/24 13:30 37.6 C H 67 21 91 10/18/24 13:30 110/46 L 10/18/24 13:00 124/61 10/18/24 13:00 124/61 10/18/24 13:00 37.6 C H 69 22 95 10/18/24 12:30 37.7 C H 69 20 93 10/18/24 12:30 126/56 L 10/18/24 12:03 37.7 C H 72 20 91 10/18/24 12:00 115/56 L 10/18/24 11:54 72 20 93 10/18/24 11:41 Nasal Cannula Recovery Score Activity: Moves 4 extremities Respiration: Deep Breath/Cough Circulation: +/-20% PreAnes Value Consciousness: Fully Awake Oxygen Saturation: > 92% On Room Air Discharge Sedation Level of Care: Fast Track Phase II Post Sedation Plan On clinical assessment, the patient appears to have tolerated the sedation without complications. Patient is recovering as anticipated. Patient will continue to be monitored by nursing and may be discharged when sedation discharge criteria are met per below protocol. Upon Completions of procedure up to 15 minutes continue every 5 minute vital signs and the P.A.R. score; then discharge to a Phase I or Fast Track to Phase II per the following guidelines: * Discharge Patient to appropriate Phase II area if PAR is 8 or greater or return to pre- procedure baseline. The post - procedure orders will be as directed. * If PAR score is less than 8 or not return to pre-procedure baseline then patient will follow Phase I monitoring till PAR is reached for Phase II. The Phase I may be done in procedure room or may call to secure a Phase I area. * If naloxone or flumazenil are used for reversal, hold in Phase I for continued monitoring from when last reversal dose was given for a minimum of 60 minutes or longer pending the nurse and/or physician discretion of patient condition before discharge to Phase II. Please call the Sedation Physician to re-evaluate and complete post-note for discharge to Phase II area. Do NOT discharge from procedure sedation or Phase 1 until post- sedation evaluation note is complete by procedure /sedation MD Sedation Discharge Instructions to be given to the patient at discharge to home. [facility] [place] Procedure Codes (Charges) Indication for Procedure Indication for procedure: NSTEMI cardiomyopathy Sedation/Anesthesia Procedure 1: Sedation/Anesthesia: 10864 Mod Sedation by the same physician;Init15 Min Child Age 5 & Up (Initial 15 minutes, start 1114, end 1127)
--- NOTE | 2024-10-19 12:20 | Cardiology Progress Note ---
Date of Service October 19, 2024 Assessment & Plan (1) Flash pulmonary edema: (2) Elevated troponin: (3) Nonischemic cardiomyopathy: Plan 1. Pulmonary edema: The rapid development and resolution of her pulmonary edema is consistent with left ventricular ischemia or pressure overload rather than fluid overload. I do not believe she has a lot of excess fluid and currently appears to be doing well with her edema. Based on her catheterization this morning the cause is probably accelerated hypertension in the setting of her known disease, rather than progression of disease. Anxiety may play a role. 2. Elevated troponin: Her troponin elevation is evidently demand ischemia in the setting of her known disease. 3. Cardiomyopathy: In the past she had a nonischemic cardiomyopathy with full recovery on an echocardiogram earlier this year. She was not on full dose medications due to orthostatic symptoms but evidently it was sufficient to correct her cardiomyopathy. Her ejection fraction is now reduced again but now with wall motion abnormalities, which appears to be due to demand ischemia not vessel occlusion. I would continue her current medical regimen, there may be significant stunning which could correct quickly but if it does not we need to adjust her medications. That may be problematic with her orthostasis but there are other medications (Jardiance/Farxiga, spironolactone) which could possibly be used without causing hypotension. My thought would be to have her come back to the office in several weeks on her current regimen and get an echocardiogram at that time for LV function and we can decide then the appropriate course. Admission and Anticipated Discharge Date Admission Date: October 18, 2024 Subjective Seen post cath, she is feeling well with no cardiovascular symptoms. She has had none since admission. Physical Exam Physical Exam: Constitutional: Alert, cooperative and in no distress. HEENT: Unremarkable Neck: No jugular venous distention, carotid pulses are normal and equal bilaterally without bruits. Pulmonary: Decreased breath sounds in the bases bilaterally. Cardiac: Regular rhythm with no murmur, gallop or rub. Abdomen: Soft, nontender with normal bowel sounds. Extremities: No edema. Neurologic: No focal findings. Skin: No rash, ecchymoses or petechiae. Results & Data Vital Signs (Past 12 Hours) Vital Signs Temp Pulse Pulse Resp BP BP Pulse Ox 10/19/24 11:52 60 18 132/65 95 10/19/24 11:40 60 18 128/58 L 93 10/19/24 10:00 140/55 L 10/19/24 10:00 140/55 L 10/19/24 09:51 61 20 92 10/19/24 09:18 63 16 92 10/19/24 09:01 129/60 10/19/24 08:54 66 16 95 10/19/24 08:45 10/19/24 08:40 149/69 H 10/19/24 08:36 63 20 95 10/19/24 08:09 58 L 16 94 10/19/24 08:02 36.5 C 10/19/24 08:00 135/57 L 10/19/24 07:54 57 L 20 96 10/19/24 07:03 58 L 20 92 10/19/24 07:00 126/60 10/19/24 05:36 62 27 H 94 10/19/24 05:00 116/44 L 10/19/24 05:00 116/44 L 10/19/24 04:57 59 L 19 93 10/19/24 04:00 62 19 93 10/19/24 03:00 117/50 L 10/19/24 03:00 59 L 21 92 10/19/24 02:00 60 14 93 10/19/24 01:00 106/41 L 10/19/24 01:00 61 19 95 O2 Del Method O2 Flow Rate 10/19/24 11:52 Nasal Cannula 3 10/19/24 11:40 Nasal Cannula 5 10/19/24 10:00 10/19/24 10:00 10/19/24 09:51 10/19/24 09:18 10/19/24 09:01 10/19/24 08:54 10/19/24 08:45 Nasal Cannula 1 10/19/24 08:40 10/19/24 08:36 10/19/24 08:09 10/19/24 08:02 10/19/24 08:00 10/19/24 07:54 10/19/24 07:03 10/19/24 07:00 10/19/24 05:36 10/19/24 05:00 10/19/24 05:00 10/19/24 04:57 10/19/24 04:00 10/19/24 03:00 10/19/24 03:00 10/19/24 02:00 10/19/24 01:00 10/19/24 01:00 Laboratory Results Cardiac Enzymes 10/18/24 10/18/24 Range/Units 14:33 20:48 Troponin I High Sens 504.9 H* 262.7 H* D (0-14) pg/ml Coagulation 10/19/24 Range/Units 04:27 PT 11.2 (9.0-12.0) Seconds CBC 10/19/24 Range/Units 04:27 WBC 7.94 (4.8-10.8) K/ul RBC 3.38 L (4.20-5.40) M/uL Hgb 10.5 L (12.0-16.0) g/dl Hct 32.0 L (37.0-47.0) % Plt Count 108 L (130-400) K/uL Neut # (Auto) 3.78 (1.40-6.50) K/uL Lymph # (Auto) 3.15 (1.20-3.40) K/uL Mccracken # (Auto) 0.68 H (0.11-0.59) K/uL Eos # (Auto) 0.28 (0.00-0.50) K/uL Baso # (Auto) 0.04 (0.00-0.20) K/uL Comprehensive Metabolic Panel 10/19/24 Range/Units 04:27 Sodium 142 (136-145) mmol/L Potassium 3.2 L (3.5-5.1) mmol/L Chloride 101 (98-107) mmol/L Carbon Dioxide 35 H (21-32) mmol/L BUN 18 (6-23) mg/dl Creatinine 1.04 (0.6-1.2) mg/dl Glucose 100 H (70-99(Fasting)) mg/dl Calcium 8.4 L (8.6-10.3) mg/dl Intake and Output 10/18/24 10/19/24 10/19/24 22:59 06:59 14:59 Intake Total 759.317 / 1032.250 122.933 / 1032.250 218.983 / 218.983 Output Total 800 / 4050 1750 / 4050 1150 / 1150 Balance -40.683 / -3017.750 -1627.067 / -3017.750 -931.017 / -931.017 Intake: IV 229.317 / 352.250 122.933 / 352.250 218.983 / 218.983 Heparin 44358 Unit/500 ml D5w 179.317 / 302.250 122.933 / 302.250 18.983 / 18.983 25,000 units In 500 ml @ 850 UNITS/HR 17 mls/hr IV .Q24H [facility] Rx#:[id number] Magnesium Sulfate / D5w 1 gm In 100 / 100 100 ml @ 50 mls/hr IV Q2H [facility] Rx#:[id number] Potassium Chloride / Wtr 10 meq 100 / 100 In 100 ml @ 100 mls/hr IV Q1H [facility] Rx#:[id number] cefTRIAXone SODIUM 2,000 mg In 50 / 50 50 ml @ 100 mls/hr IV Q24H [facility] Rx#:[id number] Oral 530 / 680 0 / 680 Output: Urine Amount (Catheter) 800 / 4050 1750 / 4050 1150 / 1150 Temp Sensing [place]ubias 800 / 4050 1750 / 4050 1150 / 1150 Other: Weight 63.5 kg Weight Measurement Method Built in [facility] PG Care Time/CCT Total # of Minutes Spent Total Time Spent with Patient: Total time spent is greater than 50% in coordination of care (as documented) at patient's floor/unit and/or counseling patient: Coding Level of Care Code 71772 SUB INP/OBS CARE 2/35MIN Diagnoses Flash pulmonary edema J81.0 Elevated troponin R79.89 Nonischemic cardiomyopathy I42.8
[2024-10-19] MEDS: ESCITALOPRAM OXALATE 20 MG TAB PO SCH (14:32)
[2024-10-19] MEDS: VALSARTAN/SACUBITRIL 51/49 MG TAB PO SCH (20:25)
[2024-10-19] MEDS: MULTIVITAMIN TAB PO SCH (20:26)
[2024-10-20 06:27] LABS: Hematocrit (blood only) 34.0 % (37.0-47.0); Hemoglobin 11.3 g/dl (12.0-16.0); Immature Granulocytes # (auto) 0.01 K/uL (0.01-0.20); Immature Granulocytes % (auto) 0.1 %; Mean Corpuscular Hemoglobin 31.2 pg (25.0-34.0); Mean Corpuscular Volume 93.9 fL (80.0-100.0); Platelet Count 137 K/uL (130-400); RDW Standard Deviation 46.0 fL (36.4-46.3); Red Blood Count 3.62 M/uL (4.20-5.40); White Blood Count 8.26 K/ul (4.8-10.8)
[2024-10-20 07:07] LABS: Anion Gap 5.0 (3-11); Blood Urea Nitrogen 19.0 mg/dl (6-23); Calcium 8.9 mg/dl (8.6-10.3); Carbon Dioxide 32.0 mmol/L (21-32); Chloride 102.0 mmol/L (98-107); Creatinine Clr Calc Pharmacy 37.5 ml/min; Glucose 111.0 mg/dl (70-99(Fasting)); Magnesium 2.0 mg/dl (1.7-2.4); Potassium 4.1 mmol/L (3.5-5.1); Sodium 139.0 mmol/L (136-145)
[2024-10-20 08:16] VITALS: BP 138/82; PULSE 65; RESP 20; TEMP 98.4; O2SAT 95
--- NOTE | 2024-10-20 08:42 | XRay Report ---
XR chest 1V portable CLINICAL HISTORY: CHF COMPARISON STUDY: 10/19/2024 FINDINGS: Stable left chest port. Heart size and pulmonary vasculature are normal. There is mild blun ting of the costophrenic angles, improved. No pneumothorax. IMPRESSION: Mild blunting of the costophrenic angles, improved. ACT 112: Negative or not required by law. Electronically signed by: Charly Machuca M.D. 10/20/2024 8:41 AM
[2024-10-20] MEDS: CHOLECALCIFEROL 125 MCG (5,000 UNITS) TAB PO SCH (08:47)
--- NOTE | 2024-10-20 09:40 | Discharge Summary ---
Discharge Summary Date of Service October 20, 2024 Principal Dx & Hospital Course #1 = Principal Diagnosis (1) Flash pulmonary edema: Resolved with Lasix diuresis and blood pressure control. (2) Acute respiratory failure with hypoxia: Resolved. She has now on room air. (3) Uncontrolled hypertension: Present on admission. Resolved now. She is off the nitroglycerin drip. Continue Entresto and metoprolol. She will use sublingual nitroglycerin as needed for systolic blood pressure greater than 190 at home. (4) Nonischemic cardiomyopathy: Probably induced by previous history of chemotherapy for breast cancer. Most recent cardiac echo done in May of this year reveals normal ejection fraction with apparent resolution of the cardiomyopathy. She did have evidence of moderate left ventricular hypertrophy and mild mitral regurgitation. Current echo reveals ejection fraction of 40% with new anterior wall motion abnormalities. This will need to be repeated in a month or 2. Fortunately, her left heart catheterization completed yesterday, October 19, did not show any critical coronary disease that needed treatment. (5) Elevated troponin: No acute EKG changes. No chest pain. Telemetry. No evidence of acute coronary syndrome. (6) Adult ADHD: Stable. Continue current medical management Plan Home today, October 20. Blood pressure is normal and she is on room air. She will use sublingual nitroglycerin as needed if her systolic blood pressure exceeds 190. All other medications remain the same. Admission HPI Per Admitting Provider 79-year-old white female with sudden onset of shortness of breath while at rest. She denies any recent lower extremity edema or weight gain. She also denies concurrent chest discomfort. She periodically checks her blood pressure at home and states her most recent systolic was around 200. She was seen at [facility] and received a dose of intravenous Lasix and has had significant diuresis. She was also placed on heparin drip and nitroglycerin drip because her troponin was mildly elevated. She denies chest pain and has no acute EKG changes. I suspect she has flash pulmonary edema from uncontrolled hypertension. She previously had nonischemic cardiomyopathy probably from her history of chemotherapy which has since resolved. Her most recent cardiac echo done in May 2024 reveals normal ejection fraction with moderate LVH and mild MR. The presence of moderate LVH suggest that she does have a history of essential hypertension. She had a left heart catheterization in July 2022 with nonobstructive coronary disease seen at that time. She is resting comfortably at the time of my examination on oxygen per nasal cannula in no acute distress. She is alert and oriented and denies any chest pain. Discharge Exam General-alert and oriented x3, no fever, no chills HEENT-head atraumatic and normocephalic, pupils equal and reactive to light, extraocular muscles intact Neck-no lymphadenopathy or thyromegaly, trachea midline Chest-bibasilar inspiratory rales have resolved. No wheezing. No rhonchi. Cardiac-regular rate and rhythm, normal S1 and S2 Abdomen-normal bowel sounds, no hepatosplenomegaly Extremities-no cyanosis, clubbing, or edema Neuro-cranial nerves II through XII intact, motor and sensory function within normal limits, strength symmetrical, no focal deficits Psych-normal affect, normal mood Discharge Plan Discharge Items Patient Disposition: Home - Self-Care Reason For Visit: RESPIRATORY FAILURE, NSTEMI Discharge Diagnosis: Flash pulmonary edema, acute systolic congestive heart failure, acute hypoxic respiratory failure, uncontrolled hypertension, hypokalemia, hypomagnesemia Activity: Resume your previous activity Non-emergency contact: Primary Care Provider Call non-emergency contact if: your symptoms worsen Follow-up/Referrals: Cash Tejada MD [Primary Care Provider] - Diet: Regular Addtl Attending Provider Instructions: Watch blood pressure closely. Take nitroglycerin under the tongue(1 tablet every 5 minutes until blood pressure improves) as needed for systolic blood pressure (top number) greater than 190. If blood pressure does not improve after taking a series of 3 nitroglycerin tablets under the tongue over a 15- minute period, then come back to the ER for treatment. Pending Studies at Discharge: No Stand-Alone Forms: My [facility], Smoking Cessation Medications and DC Order Prescriptions: New nitroglycerin 0.4 mg tablet, sublingual 0.4 mg sublingual Q5M MDD 3 tablets PRN (Reason: systolic BP greater than 190) Qty: 25 0RF Continued (DME) Port Flush See Rx Instructions .Route .MEDSUPPLY Qty: 1 0RF Rx Instructions: Please do port flush monthly and PRN Entresto 49-51 mg tablet 1 tab PO BID Qty: 180 3RF escitalopram oxalate 20 mg tablet See Rx Instructions .ROUTE .COMPLEX Qty: 90 0RF Hold Instructions: fatigue Dose Instruction: TAKE ONE TABLET BY MOUTH ONCE DAILY Rx Instructions: TAKE ONE TABLET BY MOUTH ONCE DAILY cholecalciferol (vitamin D3) 125 mcg (5,000 unit) capsule 125 mcg PO QAM multivitamin Tablet 1 tab PO HS folic acid 800 mcg tablet 850 mcg PO QAM doxepin 3 mg tablet 3 mg PO HS PRN (Reason: sleep) Qty: 30 2RF ciprofloxacin HCl 250 mg tablet 250 mg PO BID Qty: 14 0RF colestipol [Colestid] 1 gram tablet 1 g PO BID Qty: 60 5RF omeprazole 40 mg capsule,delayed release(DR/EC) 40 mg PO QAM Qty: 90 1RF rosuvastatin 20 mg tablet 20 mg PO QAM Qty: 90 3RF bupropion HCl 200 mg tablet sustained-release 12 hr 200 mg PO QAM metoprolol succinate 50 mg tablet extended release 24 hr 50 mg PO QAM aspirin 81 mg tablet,delayed release (DR/EC) 81 mg PO QAM Discharge Orders: Discharge Order- CHF (Routine); Ordered 10/20/24 Ordered By: Skip Madrid Admission Data Admit Date/Time: 10/18/24 09:31 Attending Provider: Skip Madrid Admit Provider: Artur Frye Primary Care Provider: Cash Tejada Other Providers: Freddie Weeks; Siva Landers; Cyrus Polo; Liban Coombs; Jw Leach; Emiliano Malhotra Jr; Kal Colindres; Dolores Cha; Danna Rose; Otilio Guzman; Otilio Son; Aletha Platt; Cash Negro; Genna Holliday; Cash Multani; Satinder Castro; Moy Brennan; Kalyan Schuster; El Renee; Gamal Amaral; Gail Longoria Hospital Stay Data Consultations 10/18/24 09:32 Consult Adobe Flex Developer Routine 10/18/24 09:34 Consult Cardiology Routine 10/19/24 09:51 Consult Behavioral Health Liaison Routine Procedures Performed Operation Date: 10/19/24 11:00 Actual Procedures p Cineradiography w/Routine Exam - Liban Coombs MD, PhD s Cath, Coronaries ONLY (no LV) - Liban Coombs MD, PhD Diagnostic Imagining Performed 10/19/24 06:39 CL Cath Imgs for PACS use only Routine Pending Results Patient Have Any Pending Studies at Discharge: No Discharge Instructions Given to Patient (Per Discharging Provider) Watch blood pressure closely. Take nitroglycerin under the tongue(1 tablet every 5 minutes until blood pressure improves) as needed for systolic blood pressure (top number) greater than 190. If blood pressure does not improve after taking a series of 3 nitroglycerin tablets under the tongue over a 15- minute period, then come back to the ER for treatment. Total Time Total Time Spent Total Time Spent (In Minutes): 45-minute Coding Level of Care Code 86038 INP/OBS DISCH >30 MIN Diagnoses Flash pulmonary edema J81.0 Acute respiratory failure with hypoxia J96.01 Uncontrolled hypertension I10 Nonischemic cardiomyopathy I42.8 Elevated troponin R79.89 Adult ADHD F90.9
[2024-10-20] MEDS ORDERED: HEPARIN 100 UNIT/ML 5ML FLUSH ONE (10:55)
--- NOTE | 2024-10-29 08:09 | Cardiac Catheterization ---
[facility] Data: Marketing Instructor Cardiac Status Clinical evaluation leading to the procedure CAD Presenation: Non STEMI Anginal Classification: CCS IV Heart Failure: NYHA Class: CCS III Cardiogenic Shock within 24 Hours: No Cardiac Arrest within 24 Hours: No Imaging Studies Past 6 Months: Yes Stress Studies Past 6 Months: No Coronary Anatomy Dominant: Right Left Main (% Stenosis): Normal LAD (% Stenosis): Proximal (20%) and Mid (40%) D1 (% Stenosis): Normal D2 (% Stenosis): Normal Circumflex (% Stenosis): Ostial (30%) RCA (% Stenosis): Proximal (20 to 30%), Mid (30%) and Distal (40 to 50%) R PDA (% Stenosis): Normal R PL1 (% Stenosis): Normal Ramus (% Stenosis): Normal Diagnostic Physicians Name: Liban Coombs MD, PhD Closure Device Percutaneous Entry Location: Femoral Closure Device: Angio-Seal Recommendations: Medical Therapy and/or Counseling Cardiac Cath Procedure Full Procedure Date October 19, 2024 Pre-Procedure Diagnosis Pre-Procedure Diagnosis: Non STEMI and Cardiomyopathy AUC Score AUC Score: 7 Post-Procedure Diagnosis Post-Procedure Diagnosis: Mild CAD Procedure(s) Performed Procedure(s) Performed: Coronary Angiography and Ultrasound Guided Vascular Access Inspector Conveyor Line Liban Coombs MD, PhD Estimated Blood Loss Estimated Blood Loss: Less than 5 cc Medication(s) Medication(s): Fentanyl, Lidocaine 1% and Versed Summary of Findings Brief description: Patient was brought to the cardiac catheterization suite where she was shaved a nd prepped in a sterile fashion. Sedated using IV Versed and fentanyl. Soft tissues of the right wrist were anesthetized using 2 mL of 1% Xylocaine. Using the ultrasound for guidance we attempted to access the right radial artery. However, this vessel was very small. Decision was made to go from the femoral artery approach. Soft tissue the right groin were anesthetized using 10 mL of 1% Xylocaine. Using the ultrasound for guidance, the right femoral artery was accessed and a 5 [place] femoral artery sheath was placed. All catheters were advanced and exchanged over a 0.035 J-tip wire. Left coronary angiography in orthogonal views with a 5 [place] JL 4 diagnostic catheter. Right coronary angiography in orthogonal views a 5 [place] JR4 diagnostic catheter. Diagnostic catheters were removed. Limited right femoral artery angiography was performed to evaluate for closure. Findings were favorable, therefore, the femoral artery sheath was exchanged for a 6 [place] Angio-Seal closure device. This was deployed in the recommended fashion. We obtained immediate hemostasis and the patient remained hemodynamically stable. She was returned to the recovery area. This ended the case. Coronary angiography findings: LUV-txbla-grpnlvt vessel trifurcating into LAD, circumflex, and ramus. Mild luminal irregularities. VHN-dflja-wnfepdw and transapical. Gives a large branching first diagonal and a small second diagonal. Proximal LAD with 20% stenosis. Mid vessel up to 40% stenosis. The remainder of the LAD and its branches have no angiographically evident disease. ETc-vylvz-vcqzlvr and nondominant. There is an ostial 30% stenosis. No more than mild luminal irregularities in the circumflex and its branches. Ramus-large caliber and branching. No more than mild luminal irregularities. ZYB-miodz-miqxclz and dominant. Proximal diffuse 20 to 30% stenosis with ulceration or could represent occluded RV marginal branch. Mid RCA has mild less than 30% stenosis. Distally there is calcified 40 to 50% stenosis. RCA then bifurcates into a large PDA and posterior lateral. These vessels have no more than mild luminal irregularities. Summary: 1. Mild to borderline moderate coronary disease as described. 2. Recommend medical management for secondary prevention of coronary disease including low-dose aspirin, high intensity statin therapy, beta-jamie, and angiotensin receptor jamie. Hemodynamics Rest Ao:: 113/53 mmHg Final Ao: 104/50 mmHg LV: Not performed Recommendations Recommendations: Medical Therapy and/or Counseling Radiation Exposure (mGy) 342 mGy, fluoroscopy time 1.7 minutes Contrast (mls) 60 cc Anesthesia 2 mg Versed, 50 mcg of fentanyl IV. Start time 1114, end time 1127 Procedural Complication(s) None Disposition Marketing Instructor Holding/Recovery I attest to the content of the Intraoperative Record and any orders documented therein. Any exceptions are noted below. [facility] Card Cath Procedure Codes Cardiac Catheterization Procedure 1: Cardiovascular Cath Procedures: 38919 Coronaries Therapeutic Services & Ancillary Procedure 1: Cardiovascular Tx and Anc Procedures: 12709 Ultrasonic Guidance Vascular Access Moderate Sedation Procedure 1: Sedation/Anesthesia: 85413 Mod Sedation by the same physician;Init15 Min Child Age 5 & Up (Initial 15 minutes, start 1114, end 1127) PG Care Time/CCT Total # of Minutes Spent Total Time Spent with Patient: Total time spent is greater than 50% in coordination of care (as documented) at patient's floor/unit and/or counseling patient:
== END 2024-10-20 11:20 | disposition home or self-care (01) | DRG 280 ==
LOC: 1E 07:57 → SUATTDRO 07:57 → 4W 10-19 15:26
PROC: CLB.CCO (2024-10-19 11:00)